=== PATIENT | male | born 1925 | race Caucasian/White ===

== ENCOUNTER 2016-07-10 08:03 | Emergency (ER) | payer OTHER ==
[~2016-07-10] VITALS: Ht 182.9 cm; Wt 85.4 kg
[~2016-07-10 08:03] MED LIST: ATEN-173 PO; BRIM0.2S OPB; BRIN1SUS OP; CMD/2 PO; CMD2 PO; DMD20 PO; FINA5TAB PO; FLM4 PO; LISI5TAB3 PO; MULT-190 PO; POTA-335 PO; TRAM37.52 PO; WARF2TAB PO
[2016-07-10 08:09] VITALS: TEMP 36.4; Ht 182.9 cm; Wt 85.4 kg
--- NOTE | 2016-07-10 08:49 | EMERGENCY ROOM VISIT NOTE ---
History Report prepared by [place]: Louisa Tillman Under the Supervision of: Dr. Gene Richardson D.O. First contact with patient: 08:12 Chief Complaint: FALL Stated Complaint: FALL W/ABRASIONS History of Present Illness The patient is an 89 year old male who presents to the Emergency Room with complaints of a fall that occurred around 0630 this morning. He is accompanied by his son, who is an EMT. The patient sustained a laceration to his left elbow and left knee. He denies hitting his head, losing consciousness of any other injuries. The patient is on daily Coumadin but states his INR has not been checked recently. His son reports his skin is "paper thin" and the last time he fell, he sustained a laceration to his torres, which ended up getting infected. The patient was then placed on antibiotics and developed C-Diff, which required a one night hospital stay and follow up with the local [facility]. The patient notes he cannot use certain adhesive bandages as they "pull my skin right off". His also reports the patient has experienced episodes of epistaxis recently. Source of History: patient, family (son) Onset: 0630 this morning Position: other (global) Timing: resolved Associated Symptoms: No LOC Review of Systems See HPI for pertinent positives & negatives. A total of 10 systems reviewed and were otherwise negative. Past Medical & Surgical Medical Problems: (1) Atrial fibrillation (2) Atrial flutter (3) Cellulitis of right leg (4) Cellulitis of right lower limb (5) Diabetes mellitus (6) Hyperlipidemia (7) Hyperplasia of prostate (8) Hypertension (9) Lyme disease (10) Reflux esophagitis (11) Wound infection Family History FH: stroke FHx: cancer Social History Smoking Status: Never Smoker Alcohol Use: none Drug Use: none Marital Status: Housing Status: lives alone Occupation Status: retired Current/Historical Medications Scheduled Atenolol (Tenormin), 25 MG PO DAILY Brimonidine Tartrate-Timolol M (Combigan), 1 DROP OPB BID Brinzolamide Oph (Azopt Oph), 1 DROP OP BID Finasteride (Proscar), 5 MG PO DAILY Lisinopril (Lisinopril), 5 MG PO DAILY Ocuvite Preservision (Ocuvite Preservision), 1 TAB PO BID Potassium Chloride (Potassium Chloride ER), 20 MEQ PO DAILY Tamsulosin HCl (Tamsulosin HCl), 0.4 MG PO DAILY Torsemide (Torsemide), 20 MG PO DAILY Warfarin Sodium (Coumadin), 2 MG PO UD Scheduled PRN Tramadol-Acetaminophen (Ultracet), 2 TAB PO TID PRN for Pain Allergies Coded Allergies: Clobetasol (Unverified Allergy, Severe, ITCHING, 07/10/16) Physical Exam Vital Signs Date Time Temp Pulse Resp B/P Pulse Ox O2 Delivery O2 Flow Rate FiO2 07/10/16 08:09 36.4 74 18 131/72 91 Room Air Physical Exam CONSTITUTIONAL/VITAL SIGNS: Reviewed / noted above. GENERAL: Non-toxic in appearance. INTEGUMENTARY: Warm, dry, and [place]. HEAD: Normocephalic. EYES: without scleral icterus or trauma. ENT/OROPHARYNX: clear and moist. LYMPHADENOPATHY/NECK: Is supple without lymphadenopathy or meningismus. RESPIRATORY: Lungs clear and equal. CARDIOVASCULAR: Regular rate and rhythm. GI/ABDOMEN: Soft and nontender. No organomegaly or pulsatile mass. No rebound or guarding. Normal bowel sounds. EXTREMITIES: Warm and well perfused. Several small skin tears to the left forearm, there is a large skin tear to the left lower extremity. BACK: No CVA tenderness. NEUROLOGICAL: Intact without focal deficits. PSYCHIATRIC: normal affect. MUSCULOSKELETAL: Normally developed with good muscle tone. Medical Decision & Procedures Laboratory Results Test 07/10/16 08:27 Bedside Prothrombin Time INR 2.5 (0.9-1.1) Laboratory results as stated above per my review. ED Course 0815: Previous medical records were reviewed. The patient was evaluated in room B10. A complete history and physical examination was performed. 0850: I reevaluated the patient. He is feeling much better. I discussed his results and discharge instructions and he and his son verbalized complete understanding and agreement. Medical Decision Differential includes close head injury, intracranial bleed, facial trauma, cervical spine trauma, chest and thoracic trauma, abdominal and intra-abdominal trauma, spine neurologic trauma, extremity trauma. This is a 89-year-old male who presents to the ED after a fall. The patient suffered some skin tears to his left upper extremity and left lower extremity. There are several small skin tears in the left upper extremity. One skin tear was approximated with Dermabond. The other skin tears either were missing skin or the skin was overlying on the wound. The largest skin tear was in the left lower extremity in the anterior tibial region. The avulsed skin was used as a biological dressing. All of the wounds were dressed. The patient does report a history of C. difficile in the past related antibiotics. He'll be discharged with wound care follow-up. Wounds wrapped by the nurses. The patient's INR today is 2.5. He is on Coumadin. He denies striking his head or any headaches. He is felt to be stable for discharge. Impression Primary Impression: Fall Additional Impression: Skin avulsion Scribe Attestation The scribe's documentation has been prepared under my direction and personally reviewed by me in its entirety. I confirm that the note above accurately reflects all work, treatment, procedures, and medical decision making performed by me. Departure Information Dispostion Home / Self-Care Referrals No Doctor, Assigned (PCP) Génesis Tierney,D.O. Patient Instructions My [facility] Additional Instructions Your INR today is 2.5. Follow-up with wound care clinic. Return for any concerns. Problem Qualifiers
[2016-07-10] MEDS ORDERED: DMD20 PO (08:53)
[2016-07-10] MEDS ORDERED: LSN5 PO (08:53)
[2016-07-10] MEDS ORDERED: POTA-65 PO (08:53)
[2016-07-10] MEDS ORDERED: FLM4 PO (08:53)
[2016-07-10 09:18] VITALS: BP 126/71; PULSE 59; O2SAT 95
[2016-10-14] MEDS ORDERED: CEPH500C2 PO (13:30)
== END 2016-07-10 09:19 | disposition home or self-care (01) ==
LOC: C.EDB 08:05
DX: S51.012A Laceration without foreign body of left elbow, initial encounter (principal); W19.XXXA Unspecified fall, initial encounter; I48.91 Unspecified atrial fibrillation; E11.9 Type 2 diabetes mellitus without complications; E78.5 Hyperlipidemia, unspecified; I10 Essential (primary) hypertension; Z79.01 Long term (current) use of anticoagulants

== ENCOUNTER → 2016-07-29 | Outpatient (CLI) | payer OTHER ==
[~2016-07-29] MED LIST changes: +CEPH500C2 PO; +CHOL4POW4 PO; -CMD/2 PO; -CMD2 PO; +DORZ1SOL6 OPB; +FLUO0.0566 TOP; +HYDR-4956 TOP; -LISI5TAB3 PO; +LSN5 PO; -POTA-335 PO; +POTA-65 PO; +TAMS0.4C38 PO; +WARF2TAB8 PO; +ZRX5 PO
[2016-07-29 17:36] LABS: BLOOD UREA NITROGEN 19 mg/dl (7-18); BUN/CREATININE RATIO 19.9 (10-20); CALCIUM 8.9 mg/dl (8.5-10.1); CARBON DIOXIDE 28 mmol/L (21-32); CHLORIDE 105 mmol/L (98-107); CREATININE 0.95 mg/dl (0.60-1.40); GLUCOSE 115 mg/dl (70-99); POTASSIUM 4.4 mmol/L (3.5-5.1); SODIUM 141 mmol/L (136-145)
== END | disposition home or self-care (01) ==
LOC: C.LABBC 15:55
PROVIDERS: ATTEND Internal Medicine
DX: I48.2 Chronic atrial fibrillation (principal)

== ENCOUNTER → 2016-10-25 | Outpatient (CLI) | payer OTHER ==
--- NOTE | 2016-10-25 14:07 | DIAGNOSTIC IMAGING REPORT ---
CHEST 2 VIEWS ROUTINE CLINICAL HISTORY: R06.02 Shortness of [id number] dyspnea COMPARISON STUDY: No previous studies for comparison. FINDINGS: Moderate cardiomegaly. Mild emphysematous change. Mild prominence of the central pulmonary vasculature. Diaphragms are smooth. IMPRESSION: Mild/moderate emphysematous change. Mild cardia megaly. Electronically signed by: Jesús Bar M.D. 10/25/2016 2:06 PM Dictated Date/Time: 10/25/2016 2:06 PM
[2016-10-25 17:15] LABS: BASO % 0.8 %; BASO ABS # 0.05 K/uL (0-0.2); COMPLETE YES; EOS % 3.1 %; HEMATOCRIT 38.8 % (42-52); IG% 0.2 %; LYMPH % 17.8 %; LYMPH ABS # 1.05 K/uL (1.2-3.4); MEAN CELL VOLUME 97.7 fL (80-100); MEAN CORPUSCULAR HEMOGLOBIN 31.2 pg (25-34); MONO % 12.4 %; NEUT % 65.7 %; PLATELET COUNT 212 K/uL (130-400); RED BLOOD COUNT 3.97 M/uL (4.7-6.1); WHITE BLOOD COUNT 5.89 K/uL (4.8-10.8)
[2016-10-25 17:54] LABS: ALB/GLOB RATIO 0.7 (0.9-2); ALKALINE PHOSPHATASE 147 U/L (45-117); ALT/SGPT 23 U/L (12-78); AST/SGOT 21 U/L (15-37); BLOOD UREA NITROGEN 18 mg/dl (7-18); BUN/CREATININE RATIO 17.8 (10-20); CALCIUM 8.6 mg/dl (8.5-10.1); CARBON DIOXIDE 28 mmol/L (21-32); CHLORIDE 107 mmol/L (98-107); GLUCOSE 132 mg/dl (70-99); POTASSIUM 4.3 mmol/L (3.5-5.1); SODIUM 140 mmol/L (136-145)
== END | disposition home or self-care (01) ==
LOC: C.RADBC 13:21
PROVIDERS: ATTEND Internal Medicine
DX: R06.02 Shortness of breath (principal)

== ENCOUNTER → 2016-10-27 | Outpatient (CLI) | payer OTHER ==
[2016-10-27 17:25] LABS: FERRITIN 99.3 ng/ml (8.0-388.0); THYROID STIMULATING HORMONE 1.13 uIu/ml (0.300-4.500)
--- NOTE | 2016-11-11 13:44 | CODING QUERY MEDICAL NECESSITY ---
SUPPORTING DIAGNOSIS NEEDED Dr. Moore, A supporting diagnosis is required for the test/procedure performed on this patient in order for us to be reimbursed by the patient's insurance. Please provide a supporting diagnosis for the following test/procedure listed below next to the test name along with your signature. *If there is no additional diagnosis for this patient that would support the following test/procedure please document that below next to the test/procedure. Test(s)/Procedure(s) that require a supporting diagnosis: * ([id number]) B12 VITAMIN LEVEL DIAGNOSIS: DATE OF SERVICE: 10/27/16 Provider Signature: Date: Thank you Alvaro Faust [facility] Information Management Once completed, please kindly fax back to [phone] For questions please call [phone]
== END | disposition home or self-care (01) ==
LOC: C.LABBC 12:38
PROVIDERS: ATTEND Internal Medicine
DX: R60.0 Localized edema (principal); D64.9 Anemia, unspecified; H54.8 Legal blindness, as defined in USA

== ENCOUNTER 2017-01-06 16:46 | Inpatient (IN) | payer OTHER ==
[~2017-01-06] VITALS: Ht 180.3 cm; Wt 78.7 kg
[~2017-01-06 16:46] MED LIST changes: -CHOL4POW4 PO; -DORZ1SOL6 OPB; -FLUO0.0566 TOP; -HYDR-4956 TOP; -TAMS0.4C38 PO; -WARF2TAB8 PO; -ZRX5 PO
--- NOTE | 2017-01-06 17:46 | DIAGNOSTIC IMAGING REPORT ---
CHEST ONE VIEW PORTABLE CLINICAL HISTORY: Shortness of breath. Possible failure COMPARISON STUDY: 10/25/2016 FINDINGS: The chest has an emphysematous configuration. The heart remains enlarged. There is no focal pulmonary consolidation. There is minor basilar atelectasis/scarring.[ There are no significant pleural effusions. IMPRESSION: Cardiomegaly. Emphysema. No evidence of focal pulmonary consolidation. No evidence of overt failure Electronically signed by: Valerio Ochoa M.D. 01/06/2017 5:45 PM Dictated Date/Time: 01/06/2017 5:44 PM
[2017-01-06] MEDS ORDERED: FUROSEMIDE 40 MG/4 ML VIAL IV STA (17:49)
[2017-01-06] MEDS ORDERED: DORZ1SOL6 OPB (18:06)
[2017-01-06] MEDS ORDERED: HYDR-4956 TOP (18:06)
[2017-01-06] MEDS ORDERED: WARF2TAB8 PO (18:06)
[2017-01-06] MEDS ORDERED: FLUO0.0566 TOP (18:06)
[2017-01-06] MEDS ORDERED: ZRX5 PO (18:06)
[2017-01-06 18:07] LABS: BASO % 0.4 %; BASO ABS # 0.02 K/uL (0-0.2); COMPLETE YES; EOS % 3.2 %; HEMATOCRIT 40.5 % (42-52); IG% 0.2 %; LYMPH % 21.3 %; LYMPH ABS # 1.05 K/uL (1.2-3.4); MEAN CELL VOLUME 91.2 fL (80-100); MEAN CORPUSCULAR HEMOGLOBIN 31.8 pg (25-34); MEAN CORPUSCULAR HGB CONC 34.8 g/dl (32-36); MEAN PLATELET VOLUME 8.4 fL (7.4-10.4); MONO % 14.4 %; NEUT % 60.5 %; PLATELET COUNT 201 K/uL (130-400); RED BLOOD COUNT 4.44 M/uL (4.7-6.1); WHITE BLOOD COUNT 4.93 K/uL (4.8-10.8)
[2017-01-06 18:10] LABS: POINT OF CARE PRO-BNP 1276 pg/ml (0-1800); POINT OF CARE TROPONIN I < 0.030 ng/ml (0-0.045)
[2017-01-06 18:27] LABS: INR 1.5 (0.9-1.1); PARTIAL THROMBOPLASTIN RATIO 1.4; PROTHROMBIN TIME (PATIENT) 16.6 SECONDS (9.0-12.0)
[2017-01-06 18:32] LABS: CALCIUM 9.2 mg/dl (8.5-10.1); POTASSIUM 3.1 mmol/L (3.5-5.1)
[2017-01-06] MEDS ORDERED: POTASSIUM CHLORIDE 10 MEQ / 100ML WTR IV STA (18:33)
[2017-01-06] MEDS ORDERED: POTASSIUM CHLORIDE 10 MEQ TABCR PO STA ×2 (18:33→21:11)
[2017-01-06 18:34] LABS: BUN/CREATININE RATIO 20.2 (10-20); CREATININE 1.1 mg/dl (0.60-1.40)
[2017-01-06 18:37] LABS: MAGNESIUM 2.2 mg/dl (1.8-2.4)
--- NOTE | 2017-01-06 18:56 | History and Physical ---
History & Physical Date & Time of Service: Jan 06, 2017 at 18:54 Chief Complaint: CHF Primary Care Physician: Ramin Moore M.D. 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 The patient is present here with his [id number] and son who support his history. This morning home health nursing presented to his home for regularly scheduled checkup. While there the nurse noted that he was bradycardic in the low 50s, where he normally has a heart rate in 70s. When he expressed lightheadedness she encouraged him to go to the ER. He has also taken metolazone 5 mg on 01/04 and 01/05 for a ~5lb weight gain. His dry weight is 180-185 lbs, and reports weighing 182 lbs at home today. Of note the patient was seen by Dr. Moore recently and torsemide was increased from 20 mg daily to 40 mg daily. Pt denies feeling dizzy, headache, chest pain, palpitations or flutter. He denies acutely feeling short of breath, and does not wear oxygen at baseline. He denies falls, but does frequently bump into things and his skin tears easily, he uses a crutch due to chronic right hip pain and s/p 3 R hip arthroplasties. The patient lives at home alone, but has home health nursing coming in twice weekly. Here in the ER the patient was administered Lasix 20 mg IV daily for elevated BNP= 1276, K was decrease to 3.1, A CXR was obtained and showed no acute signs of overt failure. EKG was reviewed and show atrial fibrillation with bradycardia HR equal to 56 bpm, also with T-wave inversions in V2-V3, AVF, AV3. Past Medical/Surgical History Medical Problems: (1) Atrial fibrillation Status: Chronic (2) Atrial flutter Status: Chronic (3) Cellulitis of right leg Status: Chronic (4) Cellulitis of right lower limb Status: Chronic (5) Diabetes mellitus Status: Chronic (6) Hyperlipidemia Status: Chronic (7) Hyperplasia of prostate Status: Chronic (8) Hypertension Status: Chronic (9) Lyme disease Status: Resolved (10) Reflux esophagitis Status: Chronic (11) Wound infection Status: Chronic Surgical HX: R hip arthoplasty x 3 Cataract surgery on both eyes Family History FH: stroke FHx: cancer Social History Smoking Status: Former Smoker Alcohol Use: none Drug Use: none Marital Status: Housing status: lives alone Occupational Status: retired Immunizations History of Influenza Vaccine: N/A History of Tetanus Vaccine?: No History of Pneumococcal: Yes History of Hepatitis B Vaccine: No Multi-Drug Resistant Organisms History of MDRO: No Allergies Coded Allergies: Clobetasol (Unverified Allergy, Severe, ITCHING, 01/06/17) Home Medications Scheduled Atenolol (Tenormin), 25 MG PO DAILY Brimonidine Tartrate-Timolol M (Combigan), 1 DROP OPB BID Cholestyramine (Cholestyramine), 4 MG PO BID Dorzolamide Hcl-Timolol Maleat (Cosopt Oph), 1 DROPS OPB BID Finasteride (Proscar), 5 MG PO DAILY Metolazone (Metolazone), 1 TAB PO UD Ocuvite Preservision (Ocuvite Preservision), 1 TAB PO BID Potassium Chloride (Potassium Chloride ER), 0.5 TAB PO QAM Tamsulosin HCl (Tamsulosin HCl), 0.4 MG PO DAILY Torsemide (Torsemide), 2 TAB PO QAM Warfarin Sod (Jantoven), 2 TAB PO DAILY Scheduled PRN Tramadol-Acetaminophen (Ultracet), 2 TAB PO TID PRN for Pain Review of Systems Constitutional: No fever, sweats or chills, + lightheadedness x1 day Eyes: No diplopia, no worsening or blurred vision, + R eye blindness due to childhood injury ENT: normal hearing, no trouble swallowing Respiratory: No cough, sputum, + slight dyspnea on exertion, no dyspnea at rest Cardiovascular: No chest pain, tightness or palpitations Abdomen: No pain, nausea, vomiting, diarrhea or constipation Musculoskeletal: No joint pain, calf pain, swelling Neurologic: No weakness, numbness/tingling, or balance problems Psychiatric: No anxiety or depression Skin: Chronically red skin and wounds secondary to fluid blisters on bilateral lower extremities. Physical Exam Vital Signs Date Time Temp Pulse Resp B/P (MAP) Pulse Ox O2 Delivery O2 Flow Rate FiO2 01/06/17 18:43 97 Room Air 01/06/17 18:41 44 20 141/63 96 Room Air 01/06/17 18:33 46 01/06/17 18:04 96 Room Air 01/06/17 16:55 36.3 64 20 125/69 94 Room Air General: awake, alert, no apparent distress Head: Normocephalic, atraumatic ENT: PERRL, EOMI, no pharyngeal exudate, mucous membranes moist, + wearing darkened glasses over the right eye Chest: Clear to auscultation with slightly diminished breath sounds at bases, on room air, no adventitious breath sounds Cardiac: Irregularly irregular, bradycardic, + systolic murmur grade I/, no JVD, normal peripheral pulses, good capillary refill Abdominal: NABS x 4 quadrants, + distended, +dull on percussion, nontender to palpation, no rebound, guarding or tenderness Extremities: Normal inspection, no peripheral edema or erythema, calfs nontender to palpation Psych: Normal mood and affect Neuro: AAO x 3, strength intact bilaterally and related 5/5, no motor deficits, speech is clear, no peripheral sensory deficits Diagnostics Laboratory Results Results Past 24 Hours Test 01/06/17 17:48 01/06/17 17:51 Range/Units White Blood Count 4.93 4.8-10.8 K/uL Red Blood Count 4.44 4.7-6.1 M/uL Hemoglobin 14.1 14.0-18.0 g/dL Hematocrit 40.5 42-52 % Mean Corpuscular Volume 91.2 80-100 fL Mean Corpuscular Hemoglobin 31.8 25-34 pg Mean Corpuscular Hemoglobin Concent 34.8 32-36 g/dl Platelet Count 201 130-400 K/uL Mean Platelet Volume 8.4 7.4-10.4 fL Neutrophils (%) (Auto) 60.5 % Lymphocytes (%) (Auto) 21.3 % Monocytes (%) (Auto) 14.4 % Eosinophils (%) (Auto) 3.2 % Basophils (%) (Auto) 0.4 % Neutrophils # (Auto) 2.98 1.4-6.5 K/uL Lymphocytes # (Auto) 1.05 1.2-3.4 K/uL Monocytes # (Auto) 0.71 0.11-0.59 K/uL Eosinophils # (Auto) 0.16 0-0.5 K/uL Basophils # (Auto) 0.02 0-0.2 K/uL RDW Standard Deviation 49.9 36.4-46.3 fL RDW Coefficient of Variation 14.8 11.5-14.5 % Immature Granulocyte % (Auto) 0.2 % Immature Granulocyte # (Auto) 0.01 0.00-0.02 K/uL Prothrombin Time 16.6 9.0-12.0 SECONDS Prothromb Time International Ratio 1.5 0.9-1.1 Activated Partial Thromboplast Time 37.6 21.0-31.0 SECONDS Partial Thromboplastin Ratio 1.4 Sodium Level 137 136-145 mmol/L Potassium Level 3.1 3.5-5.1 mmol/L Chloride Level 98 98-107 mmol/L Carbon Dioxide Level 33 21-32 mmol/L Anion Gap 6.0 3-11 mmol/L Blood Urea Nitrogen 22 7-18 mg/dl Creatinine 1.10 0.60-1.40 mg/dl Est Creatinine Clear Calc Drug Dose 48.5 ml/min Estimated GFR () 68.6 Estimated GFR (Non- 59.2 BUN/Creatinine Ratio 20.2 10-20 Random Glucose 154 70-99 mg/dl Calcium Level 9.2 8.5-10.1 mg/dl Magnesium Level 2.2 1.8-2.4 mg/dl Total Bilirubin 0.5 0.2-1 mg/dl Direct Bilirubin 0.2 0-0.2 mg/dl Aspartate Amino Transf (AST/SGOT) 18 15-37 U/L Alanine Aminotransferase (ALT/SGPT) 22 12-78 U/L Alkaline Phosphatase 103 45-117 U/L Total Protein 8.3 6.4-8.2 gm/dl Albumin 3.4 3.4-5.0 gm/dl Lipase 178 73-393 U/L Bedside Troponin I < 0.030 0-0.045 ng/ml SJ-For-O-Type Natriuretic Peptide 1276 0-1800 pg/ml Diagnostic Radiology CHEST ONE VIEW PORTABLE CLINICAL HISTORY: Shortness of breath. Possible failure COMPARISON STUDY: 10/25/2016 FINDINGS: The chest has an emphysematous configuration. The heart remains enlarged. There is no focal pulmonary consolidation. There is minor basilar atelectasis/scarring.[ There are no significant pleural effusions. IMPRESSION: Cardiomegaly. Emphysema. No evidence of focal pulmonary consolidation. No evidence of overt failure Electronically signed by: Valerio Ochoa M.D. 01/06/2017 5:45 PM Dictated Date/Time: 01/06/2017 5:44 PM The status of this report is Signed. EKG Vent. rate [address] interval * ms QRS duration 100 ms QT/QTc 478/461 ms P-R-T axes * -63 -51 Atrial fibrillation with slow ventricular response with premature ventricular or aberrantly conducted complexes Left axis deviation Incomplete right bundle branch block Septal infarct (cited on or before 06-JAN-2017) Inferior infarct , age undetermined ST & T wave abnormality, consider anterior ischemia Abnormal ECG When compared with ECG of 22-DEC-2009 11:07, Serial changes of Septal infarct Present Impression Assessment and Plan This is a 89 with PMHx of chronic systolic and at bedtime with an EF equals 45- 50%, pulmonary hypertension, chronic atrial fibrillation on anticoagulation, atrial flutter, hyperlipidemia, hypertension, anemia, Lyme's disease, GERD, osteoarthritis, macular degeneration, 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 Bradycardia Lightheadedness - Admit to telemetry - Holding atenolol for bradycardia with heart rate in the 50s. Pt had been taking torsemide 40 mg QAM which was recently increased per cardiology. He has also taken metolazone 5 mg on 01/04 and 01/05 for a ~5 lb weight gain. His dry weight is 180-185 lbs and today is at 182lbs. - It may be metalozone causing acute bradycardia since he has not needed to take this in the past on more than one other occasion. - Consult cardiology, follows with Dr. Rouse as an outpatient - We'll trend troponins, first set was negative - PT and OT evaluations - Received Lasix 20 mg IV in the ER Hypokalemia - potassium was placed via IV and PO in the ED for K+= 3.1 - Will give an additional 40 meq now as he got Lasix as above - Will continue K+ replacement 20 meq daily Chronic systolic CHF Pulmonary hypertension HTN - Echocardiogram from October 2016 showing LVEF = 40-45%, right ventricular moderate to severely dilated. Right Atrium severely dilated, mild to moderate mitral regurg, mild to moderate tricuspid regurg, severe pulmonary hypertension - Holding atenolol for bradycardia - Will hold torsemide 40 mg every morning - EKG reviewed as above, repeat morning EKG tomorrow and prn chest pain. Hx of atrial flutter and fibrillation - Continue coumadin, INR =1.5, will order 3 mg tonight since subtherapeutic and will order 2 mg for next 2 days. - Pt normally takes 2 mg x 2 days then 1 mg x 1 day and repeats [address] Moore follows INR. GERD - Pt reports chronic belching but is not on an antiacid - will order tums prn Osteoarthritis - Uses a crutch to assist with ambulation, lives at home alone, PT/OT evals BPH - Continue Flomax 0.4mg daily and finasteride 5 mg daily Anemia - Hgb is stable at 14.1 DVT ppx: Teds, scds, coumadin CODE STATUS: DNR Disposition: From home, lives alone, has home health services in home twice weekly, CM to assist with DC planning. Resuscitation Status DO NOT RESUSCITATE VTE Prophylaxis Given or contraindicated: Warfarin (Coumadin), T.E.D. Stockings, SCD's Social Service Consult >80 yr.& Lives Alone Reviewed: Pt Seen/Exam by Me History Physician Computer Operations Specialist Supervision Note: I interviewed and examined the patient. Discussed with ROSETTA Eldridge and agree with findings and plan as documented in the note. Any exceptions or clarifications are listed here: Patient is an 89-year-old male with a history of chronic biventricular systolic and diastolic CHF, paroxysmal atrial fibrillation and flutter, hypertension, who presents with lightheadedness and bradycardia after being seen by a visiting nurse today. He reports taking metolazone daily for the last 2 days as he had had weight gain. His torsemide was increased from 20 mg daily to 40 mg daily about one month ago as well. His heart rate apparently dropped briefly into the 30s while he was in the ER, and was in the 40s and 50s when I saw him. He had significant hypokalemia which is most likely related to the diuretic use. Patient also reports he has had a tender lump in his left breast for the last 1- 2 weeks but it has become more painful in the last 2 days. Vitals reviewed No acute distress, alert awake oriented 3 and sitting on the side of the bed Irregularly irregular, bradycardic, 2/6 systolic murmur heard at the left lower sternal border Lungs clear to auscultation bilaterally, no wheezes crackles or rhonchi Left breast with 1.5 cm palpable tender cystic mass in the subareolar region, no nipple discharge Abdomen positive bowel sounds soft nontender nondistended Extremities chronic venous stasis changes and erythema but is chronic, right anterior tibia with small shallow ulceration 1 cm, 1+ pitting edema and trophic changes of the legs bilaterally with thickened yellow toenails, 1+ dorsalis pedis pulses bilaterally 89-year-old male here with lightheadedness and bradycardia along with hypokalemia. I feel that his lightheadedness is probably more likely do to the recent metolazone use, but could also be due to bradycardia. -Hold metolazone -Hold atenolol -Observe on telemetry -Replace potassium -Okay to continue torsemide but will only give 20 mg in the morning for now -Appreciate cardiology consult -Breast ultrasound for left breast mass but seems to be a cyst on exam Documented By: Emily Escobedo
[2017-01-06] MEDS ORDERED: TAMS0.4C38 PO (19:43)
[2017-01-06] MEDS ORDERED: ACETAMINOPHEN 325 MG TAB PO PRN (19:45)
[2017-01-06] MEDS ORDERED: ONDANSETRON INJ 2 MG/ML 2 ML VIAL IV PRN (19:45)
[2017-01-06] MEDS ORDERED: POLYETHYLENE (MIRALAX) 17 GM PACK PO PRN (19:45)
[2017-01-06] MEDS ORDERED: CHOL4POW4 PO (19:45)
[2017-01-06 20:00] LABS: URINE APPEARANCE CLEAR (CLEAR); URINE BILIRUBIN NEG (NEG); URINE COLOR YELLOW; URINE NITRITE NEG (NEG); URINE SPECIFIC GRAVITY 1.008 (1.000-1.030); UROBILINOGEN NEG (NEG)
[2017-01-06 20:04] LABS: MANUAL MICROSCOPIC REQUIRED? NO; REVIEW REQ? NO
[2017-01-06 21:15] VITALS: BP 127/79; PULSE 58; TEMP 36.5; O2SAT 92
[2017-01-06] MEDS ORDERED: WARFARIN SOD 3 MG TAB PO ONE (21:30)
[2017-01-06] MEDS: CHOLESTYRAMINE LIGHT 4 GM PKT PO SCH (22:00)
[2017-01-06] MEDS: DORZOLAMIDE/TIMOLOL 22.3/6.8MG/ML 10 ML BTL OPB SCH (22:05)
[2017-01-06] MEDS: CEROVITE ADV FORMULA TAB PO SCH (22:05)
[2017-01-06 23:14] VITALS: BP 107/54; PULSE 61; TEMP 36.4; O2SAT 95
[2017-01-06 23:33] VITALS: BP 127/79; PULSE 58; TEMP 36.5; O2SAT 92; Ht 180.3 cm; Wt 78.7 kg
--- NOTE | 2017-01-06 23:36 | EMERGENCY ROOM VISIT NOTE ---
History Report prepared by Lavell: Patti Good Under the Supervision of: Dr. Jeffrey Richards M.D. First contact with patient: 17:11 Chief Complaint: CARDIAC ASSESSMENT Stated Complaint: CHF History of Present Illness The patient is a 89 year old male who presents to the Emergency Room with complaints of intermittent shortness of breath beginning today. The patient's daughter states that the patient has had worsening intermittent shortness of breath over the last few weeks. She reports that in the last week the patient has been having shortness of breath more frequently and today he began to feel lightheadedness as well. The daughter notes that the patient has a history of congestive heart failure and has right sided heart failure. She reports that he is on Coumadin for atrial fibrillation. She states that he is on diuretics and they weigh him every day. The patient notes that he has had increased weight loss and continuous belching that is not new. His physician felt that the CHF made a been responsible for his continuous belching. Shortness of breath is not unusual for him but today he was somewhat lightheaded. He does admit to not eating or drinking very much today as he has no appetite. He notes that his heart rate was found to be low by his home health nurse in the 50s today. He denies any chest pain and fever. The patient reports that he is also concerned about a mass that he found underneath his left nipple 2 days ago. He states that he follows with Dr. Moore for his CHF and atrial fibrillation and he has not told him about the mass. Source of History: patient, family Onset: today Position: other (respiratory) Quality: other (SOB) Timing: intermittent Associated Symptoms: No fevers, No chest pain Note: Pt complains of a slow heart rate, lightheadedness, dizziness, weight loss, decreased appetite, and continuous belching. Review of Systems See HPI for pertinent positives & negatives. A total of 10 systems reviewed and were otherwise negative. Past Medical & Surgical Medical Problems: (1) Atrial fibrillation (2) Atrial flutter (3) Bradycardia (4) Cellulitis of right leg (5) Cellulitis of right lower limb (6) Diabetes mellitus (7) Hyperlipidemia (8) Hyperplasia of prostate (9) Hypertension (10) Lyme disease (11) Reflux esophagitis (12) Wound infection Family History FH: stroke FHx: cancer Social History Smoking Status: Former Smoker Alcohol Use: none Drug Use: none Marital Status: Housing Status: lives alone Occupation Status: retired Current/Historical Medications Scheduled Atenolol (Tenormin), 25 MG PO DAILY Brimonidine Tartrate-Timolol M (Combigan), 1 DROP OPB BID Cholestyramine (Cholestyramine), 4 MG PO BID Dorzolamide Hcl-Timolol Maleat (Cosopt Oph), 1 DROPS OPB BID Finasteride (Proscar), 5 MG PO DAILY Metolazone (Metolazone), 1 TAB PO UD Ocuvite Preservision (Ocuvite Preservision), 1 TAB PO BID Potassium Chloride (Potassium Chloride ER), 0.5 TAB PO QAM Tamsulosin HCl (Tamsulosin HCl), 0.4 MG PO DAILY Torsemide (Torsemide), 2 TAB PO QAM Warfarin Sod (Jantoven), 2 TAB PO DAILY Scheduled PRN Tramadol-Acetaminophen (Ultracet), 2 TAB PO TID PRN for Pain Allergies Coded Allergies: Clobetasol (Unverified Allergy, Severe, ITCHING, 01/06/17) Physical Exam Vital Signs Date Time Temp Pulse Resp B/P (MAP) Pulse Ox O2 Delivery O2 Flow Rate FiO2 01/06/17 19:49 55 20 122/78 98 Room Air 01/06/17 18:43 97 Room Air 01/06/17 18:41 44 20 141/63 96 Room Air 01/06/17 18:33 46 01/06/17 18:04 96 Room Air 01/06/17 16:55 36.3 64 20 125/69 94 Room Air Physical Exam Constitutional: Vital signs reviewed. Eyes: Right eye post-traumatic changes, left pupil round and reactive. ENT: Pharynx is clear without erythema or exudate. Mucous membranes are moist. Neck supple without meningeal signs. Respiratory: Clear to auscultation bilaterally. Breath sounds are equal bilaterally. Cardiovascular: Regular rate and rhythm. No rubs or gallops. GI: Soft, nondistended and nontender. Bowel sounds are present. Musculoskeletal: Venous stasis discoloration to lower extremities with mild edema. Integumentary: No cyanosis. Small lump under left nipple without erythema or signs of infection. Neurological: The patient is awake and alert. No focal deficits. Psychiatric: Normal affect. Medical Decision & Procedures ER Provider Diagnostic Interpretation: X-ray results as stated below per interpretation by me and the radiologist: CHEST ONE VIEW PORTABLE FINDINGS: The chest has an emphysematous configuration. The heart remains enlarged. There is no focal pulmonary consolidation. There is minor basilar atelectasis/scarring. There are no significant pleural effusions. IMPRESSION: Cardiomegaly. Emphysema. No evidence of focal pulmonary consolidation. No evidence of overt failure Electronically signed by: Valerio Ochoa M.D. 01/06/2017 5:45 PM Dictated Date/Time: 01/06/2017 5:44 PM Laboratory Results 01/06/17 17:48 Red Blood Count 4.44, Mean Corpuscular Volume 91.2, Mean Corpuscular Hemoglobin 31.8, Mean Corpuscular Hemoglobin Concent 34.8, Mean Platelet Volume 8.4, Neutrophils (%) (Auto) 60.5, Lymphocytes (%) (Auto) 21.3, Monocytes (%) (Auto) 14.4, Eosinophils (%) (Auto) 3.2, Basophils (%) (Auto) 0.4, Neutrophils # (Auto ) 2.98, Lymphocytes # (Auto) 1.05, Monocytes # (Auto) 0.71, Eosinophils # (Auto ) 0.16, Basophils # (Auto) 0.02 01/06/17 17:48 Test 01/06/17 17:48 01/06/17 17:51 01/06/17 19:45 White Blood Count 4.93 K/uL (4.8-10.8) Red Blood Count 4.44 M/uL (4.7-6.1) Hemoglobin 14.1 g/dL (14.0-18.0) Hematocrit 40.5 % (42-52) Mean Corpuscular Volume 91.2 fL (80-100) Mean Corpuscular Hemoglobin 31.8 pg (25-34) Mean Corpuscular Hemoglobin Concent 34.8 g/dl (32-36) Platelet Count 201 K/uL (130-400) Mean Platelet Volume 8.4 fL (7.4-10.4) Neutrophils (%) (Auto) 60.5 % Lymphocytes (%) (Auto) 21.3 % Monocytes (%) (Auto) 14.4 % Eosinophils (%) (Auto) 3.2 % Basophils (%) (Auto) 0.4 % Neutrophils # (Auto) 2.98 K/uL (1.4-6.5) Lymphocytes # (Auto) 1.05 K/uL (1.2-3.4) Monocytes # (Auto) 0.71 K/uL (0.11-0.59) Eosinophils # (Auto) 0.16 K/uL (0-0.5) Basophils # (Auto) 0.02 K/uL (0-0.2) RDW Standard Deviation 49.9 fL (36.4-46.3) RDW Coefficient of Variation 14.8 % (11.5-14.5) Immature Granulocyte % (Auto) 0.2 % Immature Granulocyte # (Auto) 0.01 K/uL (0.00-0.02) Prothrombin Time 16.6 SECONDS (9.0-12.0) Prothromb Time International Ratio 1.5 (0.9-1.1) Activated Partial Thromboplast Time 37.6 SECONDS (21.0-31.0) Partial Thromboplastin Ratio 1.4 Anion Gap 6.0 mmol/L (3-11) Est Creatinine Clear Calc Drug Dose 48.5 ml/min Estimated GFR () 68.6 Estimated GFR (Non- 59.2 BUN/Creatinine Ratio 20.2 (10-20) Calcium Level 9.2 mg/dl (8.5-10.1) Magnesium Level 2.2 mg/dl (1.8-2.4) Total Bilirubin 0.5 mg/dl (0.2-1) Direct Bilirubin 0.2 mg/dl (0-0.2) Aspartate Amino Transf (AST/SGOT) 18 U/L (15-37) Alanine Aminotransferase (ALT/SGPT) 22 U/L (12-78) Alkaline Phosphatase 103 U/L (45-117) Total Protein 8.3 gm/dl (6.4-8.2) Albumin 3.4 gm/dl (3.4-5.0) Lipase 178 U/L (73-393) Bedside Troponin I < 0.030 ng/ml (0-0.045) TN-Lvt-N-Type Natriuretic Peptide 1276 pg/ml (0-1800) Urine Color YELLOW Urine Appearance CLEAR (CLEAR) Urine pH 7.0 (4.5-7.5) Urine Specific Walters 1.008 (1.000-1.030) Urine Protein NEG (NEG) Urine Glucose (UA) NEG (NEG) Urine Ketones NEG (NEG) Urine Occult Blood NEG (NEG) Urine Nitrite NEG (NEG) Urine Bilirubin NEG (NEG) Urine Urobilinogen NEG (NEG) Urine Leukocyte Esterase NEG (NEG) Laboratory results as reviewed by me. Medications Administered Medications (Trade) Dose Ordered Sig/Celeste Route Start Time Stop Time Status Last Admin Dose Admin Furosemide (Lasix Inj) 20 mg NOW STAT IV 01/06/17 17:49 01/06/17 17:50 DC 01/06/17 19:21 20 MG Potassium Chloride (Kcl 10 Meq / Wtr) 10 meq NOW STAT IV 01/06/17 18:33 01/06/17 18:34 DC 01/06/17 19:21 10 MEQ Potassium Chloride (Klor-Con M10) 40 meq NOW STAT PO 01/06/17 18:33 01/06/17 18:34 DC 01/06/17 18:33 40 MEQ ECG Indication: SOB/dyspnea Rate (beats per minute): 56 Rhythm: atrial fibrillation Findings: RBBB (incomplete), other (no ST elevation) Comparison ECG Date: 12/22/09 Change: no significant change ED Course 171: The patient was evaluated in room A4. A complete history and physical exam was performed. 174: Lasix Inj 20mg IV. 1817: I reassessed the patient. His heart rate is going down into the 40s and 50s. I discussed his test results with him. 1833: Potassium Chloride 40meq PO, Potassium Chloride 10meq IV. 1845: I spoke with Dr. Escobedo of [facility] [place]. We discussed the patient and his results. The patient will be further evaluated by Dr. Escobedo. 1853: I reevaluated and updated the patient and his family. He will be further evaluated and managed by Dr. Escobedo of [facility] [place]. Medical Decision This is an 89-year-old male who presents with lightheadedness and shortness of breath. Differential diagnosis includes acute exacerbation of CHF, pleural effusion, pulmonary edema, pneumonia, metabolic derangement, anemia. I did perform a limited focused review of portions of the patient's old chart on the electronic medical record. The patient is followed by the wound clinic for venostasis ulcerations to the lower extremities. I did evaluate the patient as noted above. The patient is presenting with lightheadedness and some increased shortness of breath. His daughter is concerned that he has an exacerbation of his CHF. IV access was established. The patient was given Lasix 20 mg IV. The patient was placed on a continuous clinical research monitor. The patient has episodic bradycardia. His heart rate will go into the 30s although he will remain normotensive. I did order and personally review the patient's 12-lead EKG and chest x-ray as described above. I did order and review the patient's blood work as noted in the electronic medical record. He is hypokalemic. I did treat him with IV potassium and oral potassium. I did discuss the test results with the patient and the family. I did recommend hospitalization for further workup of his bradycardia. I did discuss the case with the hospitalist and case specialist. He was advised follow with his doctor regarding the breast mass. Medication Reconcilliation Current Medication List: was personally reviewed by me Blood Pressure Screening Patient's blood pressure: Normal blood pressure Blood pressure disposition: Did not require urgent referral Consults Time Called: 1841 Consulting Physician: Dr. Escobedo - [facility] [place] Returned Call: [address] Escobedo of [facility] [place]. We discussed the patient and his results. The patient will be further evaluated by Dr. Escobedo. Impression Primary Impression: Bradycardia Additional Impressions: CHF (congestive heart failure) Breast mass in male Hypokalemia Subtherapeutic international normalized ratio (INR) Atrial fibrillation Scribe Attestation The scribe's documentation has been prepared under my direct and personally reviewed by me in its entirety. I confirm that the note above accurately reflects all work, treatment, procedures, and medical decision making performed by me. Departure Information Dispostion Being Evaluated By Hospitalist Referrals No Doctor, Assigned (PCP) Patient Instructions My [facility] Problem Qualifiers Additional Impressions: CHF (congestive heart failure) Congestive heart failure type: unspecified congestive heart failure type Congestive heart failure chronicity: unspecified congestive heart failure chronicity Qualified Codes: I50.9 - Heart failure, unspecified Atrial fibrillation Atrial fibrillation type: chronic Qualified Codes: I48.2 - Chronic atrial fibrillation
[2017-01-07] VITALS (7 sets, daily range): BP systolic 108–129; BP diastolic 61–76; PULSE 61–79; TEMP 36.4–37; O2SAT 90–98
[2017-01-07 05:49] LABS: BASO % 0.8 %; BASO ABS # 0.04 K/uL (0-0.2); COMPLETE YES; EOS % 3.9 %; HEMATOCRIT 41.2 % (42-52); LYMPH ABS # 1.32 K/uL (1.2-3.4); MEAN CELL VOLUME 90.5 fL (80-100); MEAN CORPUSCULAR HEMOGLOBIN 30.8 pg (25-34); MEAN PLATELET VOLUME 8.4 fL (7.4-10.4); MONO % 19.7 %; NEUT % 48.6 %; PLATELET COUNT 209 K/uL (130-400); RED BLOOD COUNT 4.55 M/uL (4.7-6.1); WHITE BLOOD COUNT 4.88 K/uL (4.8-10.8)
[2017-01-07 06:15] LABS: BUN/CREATININE RATIO 21.6 (10-20); CALCIUM 9.5 mg/dl (8.5-10.1); CREATININE 0.98 mg/dl (0.60-1.40); POTASSIUM 3.4 mmol/L (3.5-5.1)
[2017-01-07 06:28] LABS: INR 1.5 (0.9-1.1); PROTHROMBIN TIME (PATIENT) 16.1 SECONDS (9.0-12.0)
[2017-01-07] MEDS: COMBIGAN~ORDER AWAITING ACTION SCH ×4 (08:00→23:57)
[2017-01-07] MEDS ORDERED: PNEUMOCOCCAL ADMINISTRATION CHARGE ONE (08:00)
[2017-01-07] MEDS ORDERED: PNEUMOCOCCAL POLYSACCHARIDES 25 MCG/0.5 ML VIAL/SYR IM. ONE (08:00)
[2017-01-07] MEDS ORDERED: WARFARIN SOD 2 MG TAB PO SCH ×2 (09:00→16:00)
[2017-01-07] MEDS: DORZOLAMIDE/TIMOLOL 22.3/6.8MG/ML 10 ML BTL OPB SCH ×2 (09:53→21:10)
[2017-01-07] MEDS: CHOLESTYRAMINE LIGHT 4 GM PKT PO SCH (10:00)
[2017-01-07] MEDS: TORSEMIDE 20 MG TAB PO SCH (10:01)
[2017-01-07] MEDS: POTASSIUM CHLORIDE 20 MEQ TABCR PO SCH (10:01)
[2017-01-07] MEDS: CEROVITE ADV FORMULA TAB PO SCH ×2 (10:02→21:11)
[2017-01-07] MEDS: TAMSULOSIN HCL 0.4 MG CAP PO SCH (10:02)
[2017-01-07] MEDS: FINASTERIDE 5 MG TAB PO SCH (10:02)
--- NOTE | 2017-01-07 11:13 | CARDIOLOGY CONSULTATION ---
DATE OF CONSULTATION: 01/07/2017 PERTINENT HISTORY: Mr. Mojica is an 89-year-old white male admitted yesterday because of bradycardia and possible dehydration. The patient was in his usual state of health until January 04 when the patient noticed 5 pounds of weight gain. Typically, the patient weighs 181-182 pounds. His weight increased to 187 pounds and he administered a dose of metolazone on both January 04 and January 05. Following the dosing of additional diuretics, the patient noted an orthostatic dizziness. He was assessed by a home nurse on the day of presentation, who noted his heart rate to be in the 50s. Typically, by her report, his heart rate is in the 70s. He was therefore sent to the emergency room for further care. The patient has a longstanding history of cardiac disease. He has a Persantine stress test performed in May 1998, which noted anteroapical ischemia. No cardiac catheterization was performed. The patient also carries a history of combined congestive heart failure with an ejection fraction of 45%-50% on an echocardiogram performed on November 04 of this year. He also has significant pulmonary hypertension, possibly from obstructive sleep apnea. The right heart was significantly dilated with moderate right ventricular systolic dysfunction. There is evidence of severe pulmonary hypertension with mild to moderate tricuspid regurgitation and a calculated pulmonary artery systolic pressure of greater than 60 mmHg. In terms of the patient's bradycardia, his atenolol was placed on hold. There has been some improvement in his heart rate. Currently, the patient is resting comfortably at the bedside without complaints of chest pain or dyspnea. He further denies syncope, presyncope, PND, orthopnea, palpitations, change in lower extremity edema, and claudication. PAST MEDICAL HISTORY: 1. Presumed coronary artery disease -- anteroapical ischemia on nuclear stress test in May 1998. 2. 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 3. Permanent atrial fibrillation. 4. Hypertension. 5. Hypercholesterolemia. 6. Severe pulmonary hypertension. 7. Obstructive sleep apnea -- sleep study done remotely. 8. Diabetes mellitus. 9. Monoclonal gammopathy of undetermined significance. 10. GERD. 11. BPH. 12. Total hip replacements x3. 13. Bilateral intraocular lens implants. 14. Right eye blindness. 15. Glaucoma. 16. Macular degeneration. 17. DJD. MEDICATIONS: 1. Torsemide 20 mg p.o. daily. 2. Potassium 10 mEq daily. 3. Coumadin 1 mg daily. 4. Proscar 5 mg per day. 5. Flomax 0.4 mg daily. 6. Questran 4 grams b.i.d. 7. Cosopt eyedrops 1 drop b.i.d. 8. Combigan eyedrops 1 drop b.i.d. 9. Atenolol 25 mg daily -- on hold. ALLERGIES: CLOBETASOL. SOCIAL HISTORY: The patient is a . He lives alone, but the family is close. Quit tobacco use over 20 years ago. Does not use alcohol. FAMILY HISTORY: Noncontributory. REVIEW OF SYSTEMS: A 10-point review of systems was negative except for that described above. PHYSICAL EXAMINATION: GENERAL: This is a well-developed and well-nourished white male in no acute distress. VITAL SIGNS: Blood pressure 123/72 with an irregular pulse of 77. Respiratory rate is 18. The patient is afebrile at 36.6 degrees Celsius. Saturation 95% on room air. HEENT: Negative. NECK: Supple with full carotid upstrokes. No obvious bruits. Jugular venous pressure is flat at 90 degrees. There is no thyromegaly. CARDIOVASCULAR: Reveals an irregularly irregular rhythm with distant heart sounds. A 1/6 apical holosystolic murmur is noted. Right-sided S3 is also noted. LUNGS: Clear without rales, rhonchi, or wheezes. ABDOMEN: Soft and nontender without bruits. EXTREMITIES: Reveal intact radial artery pulses bilaterally. 1+ pretibial edema is noted bilaterally. LABORATORY DATA: CBC notes a hemoglobin 14.0, hematocrit 41.2, white count 4.8, and platelet count 209,000. Electrolytes note a sodium of 138, potassium 3.4, chloride 101, bicarb 31, BUN 21, creatinine 0.98, and glucose 110. Initial troponin I level is undetectable at less than 0.03. Followup value was less than 0.015. BNP is normal at 1276. INR is 1.5. EKG notes atrial fibrillation with PVCs or aberrant beats. Heart rate was 56. There is left axis deviation. An old anteroseptal and inferior myocardial infarction cannot be excluded. Chest x-ray notes cardiomegaly, emphysematous changes, but no evidence of congestive failure. Echocardiogram performed on November 04 noted mild left ventricular dysfunction with an ejection fraction of 45%-50%. The right ventricle was moderate to severely dilated as was the right atrium. There was evidence of right ventricular systolic dysfunction and mild to moderate mitral and tricuspid regurgitation. Calculated pulmonary artery systolic pressure was greater than 60 mmHg. media supervisor here notes atrial fibrillation with a controlled ventricular response. He did have a heart rate of 30 while sleeping. No significant pauses. IMPRESSION: Mr. Mojica was admitted with slow ventricular response to his atrial fibrillation. This may be secondary to his beta flynn therapy with atenolol orally and 2 eyedrop preparations, which containe timolol. However, his heart rate has improved since holding the atenolol. Should he demonstrate significant pauses or his heart rate becomes bradycardic, we may need to consider permanent pacemaking. Not necessary at this time. The patient does demonstrate cor pulmonale. I suspect this is related to severe pulmonary hypertension from untreated obstructive sleep apnea. It would be reasonable to repeat sleep study as an outpatient as his initial study was done numerous years ago. PLAN: 1. Agree with holding atenolol. 2. We may need to consider changing eyedrop preparations, so that no beta blockade is included. 3. Continue to observe on telemetry. 4. Determine if the pacemaking necessary in approximately 24 hours. 5. Would perform a sleep study as an outpatient. 6. Further recommendation is depending on his clinical course. [facility]
--- NOTE | 2017-01-07 11:28 | ECHOCARDIOGRAM REPORT ---
*NOTICE TO RECEIVING LIBERTARIAN AGENCY This information is strictly Confidential and protected under [place] law. [place] law prohibits you from making any further disclosure of this information unless further disclosure is expressly permitted by the written consent of the person to whom it pertains or is authorized by law. A general authorization for the release of medical or other information is not sufficient for this purpose. Hospital accepts no responsibility if the information is made available to any other person, INCLUDING THE PATIENT. Interpretation Summary * Name: THAIS SIMS Study Date: 01/07/2017 07:13 AM BP: 108/61 mmHg * Patient Location: C.2T\S\S242\S\2 HR: 61 * : 1925 (M/d/yyy) Gender: Male Height: 71 in * Age: 89 yrs Ethnicity: CA Weight: 182 lb * Ordering Physician: Jojo Carvalho * Referring Physician: Ramin Moore * Performed By: Dyan Brewster * * Reason For Study: A-FIB * BSA: 2.0 m2 * -- Conclusions -- * Left ventricular systolic function is normal. * No regional wall motion abnormalities noted. * Ejection Fraction = 55-60%. * Dilated right sided chambers. * Right ventricular dysfunction. * Mild valvular aortic stenosis. * There is mild to moderate mitral regurgitation. * There is mild to moderate tricuspid regurgitation. * Evidence of severe pulmonary hypertension. Procedure Details * A complete two-dimensional transthoracic echocardiogram was performed (2D, M-mode, Doppler and color flow Doppler). Left Ventricle * The left ventricle is normal in size. * There is normal left ventricular wall thickness. * Ejection Fraction = 55-60%. * Left ventricular systolic function is normal. * No regional wall motion abnormalities noted. Right Ventricle * The right ventricular cavity size is enlarged (proximal parasternal long axis right ventricular outflow tract dimension >3.3 cm). * The right ventricular systolic function is reduced as assessed by tricuspid annular plane systolic excursion (TAPSE) (TAPSE <1.6 cm). Atria * The left atrium is moderately dilated. * The right atrium is moderately dilated. * There is no evidence of atrial septal defect, but resolution does not allow assessment for a patent foramen ovale. Mitral Valve * The mitral valve is grossly normal. * There is no mitral valve stenosis. * There is mild to moderate mitral regurgitation. Tricuspid Valve * The tricuspid valve is not well visualized, but is grossly normal. * There is mild to moderate tricuspid regurgitation. * Right ventricular systolic pressure is elevated at >60mmHg. Aortic Valve * The aortic valve is tricuspid. The leaflet thickness if normal. There is no aortic stenosis, and no significant insufficiency. * Mild valvular aortic stenosis. * No aortic regurgitation is present. Pulmonic Valve * The pulmonary valve is not well seen, but the Doppler examination is normal without significant regurgitation or stenosis. Great Vessels * The aortic root is normal size. * Mildly dilated ascending aorta. * The pulmonary is not well visualized. Pericardium/Pleural * There is no pericardial effusion. Great Vessels * Dilated inferior vena cava with reduced collapsability with sniff indicates an elevated right atrial pressure of 15 mmHg MMode 2D Measurements and Calculations IVSd 1.5 cm IVSs 2.0 cm LVIDd 4.4 cm LVIDs 2.7 cm LVPWd 1.0 cm LVPWs 1.7 cm IVS/LVPW 1.4 FS 37.7 % EDV(Teich) 88.1 ml ESV(Teich) 28.1 ml EF(Teich) 68.1 % EDV(cubed) 85.7 ml ESV(cubed) 20.7 ml EF(cubed) 75.9 % % IVS thick 38.5 % % LVPW thick 63.7 % LV mass(C)d 204.1 grams LV mass(C)dI 100.7 grams/m\S\2 LV mass(C)s 209.4 grams LV mass(C)sI 103.4 grams/m\S\2 CO(Teich) 3.2 l/min CI(Teich) 1.6 l/min/m\S\2 SV(Teich) 60.0 ml SI(Teich) 29.6 ml/m\S\2 CO(cubed) 3.5 l/min CI(cubed) 1.7 l/min/m\S\2 SV(cubed) 65.0 ml SI(cubed) 32.1 ml/m\S\2 LA dimension 5.6 cm asc Aorta Diam 3.6 cm LVOT diam 1.8 cm LVOT area 2.6 cm\S\2 LVAd ap4 25.1 cm\S\2 LVLd ap4 6.7 cm EDV(MOD-sp4) 76.4 ml LVAs ap4 12.4 cm\S\2 LVLs ap4 5.7 cm ESV(MOD-sp4) 23.4 ml EF(MOD-sp4) 69.4 % LVAd ap2 21.1 cm\S\2 LVLd ap2 6.0 cm EDV(MOD-sp2) 61.9 ml LVAs ap2 10.8 cm\S\2 LVLs ap2 4.8 cm ESV(MOD-sp2) 21.4 ml EF(MOD-sp2) 65.4 % CO(MOD-sp4) 2.9 l/min CI(MOD-sp4) 1.4 l/min/m\S\2 SV(MOD-sp4) 53.0 ml SI(MOD-sp4) 26.2 ml/m\S\2 CO(MOD-sp2) 2.2 l/min CI(MOD-sp2) 1.1 l/min/m\S\2 SV(MOD-sp2) 40.5 ml SI(MOD-sp2) 20.0 ml/m\S\2 Doppler Measurements and Calculations MV E max elba 103.8 cm/sec MV A max elba 34.0 cm/sec MV E/A 3.1 MV dec time 0.28 sec Ao V2 max 192.7 cm/sec Ao max PG 14.9 mmHg Ao max PG (full) 11.4 mmHg LUIS(V,A) 1.2 cm\S\2 LUIS(V,D) 1.2 cm\S\2 LV V1 max PG 3.4 mmHg LV V1 max 92.6 cm/sec MR max elba 464.2 cm/sec MR max PG 86.2 mmHg PA V2 max 82.9 cm/sec PA max PG 2.8 mmHg PI end-d elba 43.4 cm/sec TR max elba 388.9 cm/sec
--- NOTE | 2017-01-07 15:31 | Progress Note ---
Subjective Date of Service: Jan 07, 2017. Subjective pt says he feels much better, he has noted some decreased exercise tolerance and generally fatigue of late, holding b flynn has helped pic up rate. he has no other concerns Problem List Medical Problems: (1) Atrial fibrillation Status: Chronic (2) Breast mass in male Status: Acute (3) CHF (congestive heart failure) Status: Acute (4) Fall Status: Acute (5) Hypokalemia Status: Acute (6) Pruritic dermatitis Status: Acute (7) Rash Status: Acute (8) Skin avulsion Status: Acute (9) Subtherapeutic international normalized ratio (INR) Status: Acute (10) Wound infection Status: Chronic Review of Systems Constitutional: + weakness, + fatigue, No fever, No chills Respiratory: + dyspnea on exertion, No cough, No shortness of breath Cardiac: No chest pain, No orthopnea, No PND, No edema Abdomen: No pain, No nausea, No vomiting, No diarrhea Musculoskeletal: No joint pain, No muscle pain Neurologic: No memory loss, No paralysis Objective Vital Signs Date Time Temp Pulse Resp B/P (MAP) Pulse Ox O2 Delivery O2 Flow Rate FiO2 01/07/17 07:36 36.6 77 18 123/72 (89) 95 01/07/17 04:00 Room Air 01/07/17 03:32 36.5 61 20 108/61 (77) 91 Room Air 01/07/17 00:00 Room Air 01/06/17 23:33 36.5 58 22 127/79 92 Room Air 01/06/17 23:14 36.4 61 18 107/54 (71) 95 Room Air 01/06/17 21:15 36.5 58 22 127/79 (95) 92 Room Air 01/06/17 20:56 50 20 140/66 98 Room Air 01/06/17 19:49 55 20 122/78 98 Room Air 01/06/17 18:43 97 Room Air 01/06/17 18:41 44 20 141/63 96 Room Air 01/06/17 18:33 46 01/06/17 18:04 96 Room Air 01/06/17 16:55 36.3 64 20 125/69 94 Room Air Physical Exam General Appearance: WD/WN, + mild distress Eyes: + pertinent finding (has right eye patched, left eye with diminished visual acuity) Neck: supple, + JVD Respiratory/Chest: chest non-tender, lungs clear, normal breath sounds Cardiovascular: + bradycardia, + systolic murmur Abdomen: normal bowel sounds, non tender, soft Extremities: + pedal edema (trace to 1+) Neurologic/Psychiatric: alert, oriented x 3 Laboratory Results Last 24 Hours Test 01/06/17 17:48 01/06/17 17:51 01/06/17 19:45 01/07/17 02:05 White Blood Count 4.93 K/uL Red Blood Count 4.44 M/uL Hemoglobin 14.1 g/dL Hematocrit 40.5 % Mean Corpuscular Volume 91.2 fL Mean Corpuscular Hemoglobin 31.8 pg Mean Corpuscular Hemoglobin Concent 34.8 g/dl Platelet Count 201 K/uL Mean Platelet Volume 8.4 fL Neutrophils (%) (Auto) 60.5 % Lymphocytes (%) (Auto) 21.3 % Monocytes (%) (Auto) 14.4 % Eosinophils (%) (Auto) 3.2 % Basophils (%) (Auto) 0.4 % Neutrophils # (Auto) 2.98 K/uL Lymphocytes # (Auto) 1.05 K/uL Monocytes # (Auto) 0.71 K/uL Eosinophils # (Auto) 0.16 K/uL Basophils # (Auto) 0.02 K/uL RDW Standard Deviation 49.9 fL RDW Coefficient of Variation 14.8 % Immature Granulocyte % (Auto) 0.2 % Immature Granulocyte # (Auto) 0.01 K/uL Prothrombin Time 16.6 SECONDS Prothromb Time International Ratio 1.5 Activated Partial Thromboplast Time 37.6 SECONDS Partial Thromboplastin Ratio 1.4 Sodium Level 137 mmol/L Potassium Level 3.1 mmol/L Chloride Level 98 mmol/L Carbon Dioxide Level 33 mmol/L Anion Gap 6.0 mmol/L Blood Urea Nitrogen 22 mg/dl Creatinine 1.10 mg/dl Est Creatinine Clear Calc Drug Dose 48.5 ml/min Estimated GFR () 68.6 Estimated GFR (Non- 59.2 BUN/Creatinine Ratio 20.2 Random Glucose 154 mg/dl Calcium Level 9.2 mg/dl Magnesium Level 2.2 mg/dl Total Bilirubin 0.5 mg/dl Direct Bilirubin 0.2 mg/dl Aspartate Amino Transf (AST/SGOT) 18 U/L Alanine Aminotransferase (ALT/SGPT) 22 U/L Alkaline Phosphatase 103 U/L Total Protein 8.3 gm/dl Albumin 3.4 gm/dl Lipase 178 U/L Bedside Troponin I < 0.030 ng/ml PH-Rsi-D-Type Natriuretic Peptide 1276 pg/ml Urine Color YELLOW Urine Appearance CLEAR Urine pH 7.0 Urine Specific [place] 1.008 Urine Protein NEG Urine Glucose (UA) NEG Urine Ketones NEG Urine Occult Blood NEG Urine Nitrite NEG Urine Bilirubin NEG Urine Urobilinogen NEG Urine Leukocyte Esterase NEG Troponin I < 0.015 ng/ml Test 01/07/17 05:16 White Blood Count 4.88 K/uL Red Blood Count 4.55 M/uL Hemoglobin 14.0 g/dL Hematocrit 41.2 % Mean Corpuscular Volume 90.5 fL Mean Corpuscular Hemoglobin 30.8 pg Mean Corpuscular Hemoglobin Concent 34.0 g/dl Platelet Count 209 K/uL Mean Platelet Volume 8.4 fL Neutrophils (%) (Auto) 48.6 % Lymphocytes (%) (Auto) 27.0 % Monocytes (%) (Auto) 19.7 % Eosinophils (%) (Auto) 3.9 % Basophils (%) (Auto) 0.8 % Neutrophils # (Auto) 2.37 K/uL Lymphocytes # (Auto) 1.32 K/uL Monocytes # (Auto) 0.96 K/uL Eosinophils # (Auto) 0.19 K/uL Basophils # (Auto) 0.04 K/uL RDW Standard Deviation 49.3 fL RDW Coefficient of Variation 14.9 % Immature Granulocyte % (Auto) 0.0 % Immature Granulocyte # (Auto) 0.00 K/uL Prothrombin Time 16.1 SECONDS Prothromb Time International Ratio 1.5 Sodium Level 138 mmol/L Potassium Level 3.4 mmol/L Chloride Level 101 mmol/L Carbon Dioxide Level 31 mmol/L Anion Gap 6.0 mmol/L Blood Urea Nitrogen 21 mg/dl Creatinine 0.98 mg/dl Est Creatinine Clear Calc Drug Dose 54.4 ml/min Estimated GFR () 78.9 Estimated GFR (Non- 68.1 BUN/Creatinine Ratio 21.6 Random Glucose 110 mg/dl Calcium Level 9.5 mg/dl Assessment and Plan 89 m with acute on chronic systolic heart failure and bradycardia chronic health problems are pulmonary hypertension, chronic atrial fibrillation/ aflutter on anticoagulation, hyperlipidemia, hypertension, anemia, Lyme's disease, GERD, osteoarthritis, macular degeneration with 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 Pt had been taking torsemide 40 mg QAM which was recently increased plus metolazone 5 mg on 01/04 and 01/05 for weight gain. - Consult cardiology, follows with Dr. Rouse as an outpatient,he did review ECHO, systolic function is good, does have dilated right heart and likely pulmonary htn based on undertreated sleep apnea, will have nocturnal oxymetry and needs outpt sleep study Hypokalemia replete Hx of atrial flutter and fibrillation anticoagulation- Continue coumadin, INR = 1.5, adjust and follow coumadin Osteoarthritis - Uses a crutch to assist with ambulation, lives at home alone, PT/OT evals once heart rate improved BPH voiding continue Flomax 0.4mg daily and finasteride 5 mg daily DVT ppx: Teds, scds, coumadin CODE STATUS: DNR
[2017-01-07] MEDS ORDERED: WARFARIN SOD 1 MG TAB PO SCH (16:00)
[2017-01-07] MEDS ORDERED: POTASSIUM CHLORIDE 20 MEQ TABCR PO ONE (16:00)
[2017-01-07] MEDS: TRAMADOL/ACETAMINOPHEN 37.5/325MG TAB PO PRN (16:54)
[2017-01-08] VITALS (8 sets, daily range): BP systolic 107–130; BP diastolic 66–74; PULSE 58–84; TEMP 36.3–36.7; O2SAT 92–97
[2017-01-08 05:59] LABS: BASO % 1.1 %; BASO ABS # 0.05 K/uL (0-0.2); COMPLETE YES; EOS % 4.5 %; HEMATOCRIT 42.4 % (42-52); LYMPH % 30.9 %; LYMPH ABS # 1.37 K/uL (1.2-3.4); MEAN CELL VOLUME 92.2 fL (80-100); MEAN CORPUSCULAR HEMOGLOBIN 31.3 pg (25-34); MEAN PLATELET VOLUME 8.3 fL (7.4-10.4); MONO % 20.3 %; NEUT % 43.2 %; PLATELET COUNT 189 K/uL (130-400); WHITE BLOOD COUNT 4.44 K/uL (4.8-10.8)
[2017-01-08 06:04] LABS: INR 1.4 (0.9-1.1); PROTHROMBIN TIME (PATIENT) 15.4 SECONDS (9.0-12.0)
[2017-01-08 06:47] LABS: CALCIUM 9.3 mg/dl (8.5-10.1); CREATININE 0.98 mg/dl (0.60-1.40)
[2017-01-08] MEDS: COMBIGAN~ORDER AWAITING ACTION SCH ×2 (08:00→15:03)
[2017-01-08] MEDS: FINASTERIDE 5 MG TAB PO SCH (09:00)
[2017-01-08] MEDS: DORZOLAMIDE/TIMOLOL 22.3/6.8MG/ML 10 ML BTL OPB SCH ×2 (09:00→20:34)
[2017-01-08] MEDS: TORSEMIDE 20 MG TAB PO SCH (09:00)
[2017-01-08] MEDS: CEROVITE ADV FORMULA TAB PO SCH ×2 (09:00→20:35)
[2017-01-08] MEDS: TAMSULOSIN HCL 0.4 MG CAP PO SCH (09:00)
[2017-01-08] MEDS: POTASSIUM CHLORIDE 20 MEQ TABCR PO SCH (09:00)
--- NOTE | 2017-01-08 11:48 | CARDIOLOGY PROGRESS NOTE ---
DATE: 01/08/2017 SUBJECTIVE: Mr. Mojica is resting comfortably at the bedside without complaints of chest pain, dyspnea, palpitations, or syncope. Did have an episode of "lightheadedness" yesterday afternoon. Heart rate was diminished at that time. OBJECTIVE: VITAL SIGNS: Blood pressure is 114/74 with a regular pulse of 80. Respiratory rate is 18. The patient is afebrile at 36.4 degrees Celsius. Saturation is 96% on room air. NECK: Supple with full carotid upstrokes. There are no carotid bruits. Jugular venous pressure is flat at 90 degrees. There is no thyromegaly. CARDIOVASCULAR: Reveals an irregularly irregular rhythm with distant heart sounds. A 1/6 apical holosystolic murmur is noted. A right-sided S3 is also noted. LUNGS: Clear without rales, rhonchi, or wheezes. ABDOMEN: Soft and nontender without bruits. EXTREMITIES: Reveal intact radial artery pulses bilaterally. 1+ pretibial edema is noted. LABORATORY DATA: CBC notes hemoglobin 14.4, hematocrit 42.4, white count 4.4, and platelet count 189,000. Electrolytes note a sodium of 138, potassium 4.0, chloride 101, bicarb 32, BUN 23, creatinine 0.98, and glucose 113. Third troponin I levels are undetectable at less than 0.015. surveillance system monitor noted several 3.2-second pauses overnight. Heart rate was down to 29 beats per minute at one point. With physical activity this morning, heart rate accelerated up to 120. IMPRESSION AND PLAN: 1. Tachycardia/bradycardia syndrome - the patient continues to note decreased heart rates and pauses of 3.2 seconds since discontinuation of atenolol. Did accelerate heart rate today with physical activity up to 120. He will likely need reinitiation of atenolol; however, it appears he may need permanent pacemaking prior to that reinitiation. We will discuss with Dr. Valladares and Dr. Gale tomorrow morning. 2. Chronic diastolic congestive heart failure -- compensated at this time. Echocardiogram done yesterday notes normalization of left ventricular systolic function when compared with an echocardiogram performed in October. 3. Presumed coronary artery disease -- anteroapical ischemia on nuclear stress test in May 1998. 4. Cor pulmonale -- with dilatation of right-sided chambers and right ventricular dysfunction noted on echocardiogram. I have discussed the need for a repeat sleep study as an outpatient. May benefit from CPAP at night. 5. Severe pulmonary hypertension. 6. Hypertension -- controlled. 7. Hypercholesterolemia. MTDD
--- NOTE | 2017-01-08 12:30 | Progress Note ---
Subjective Date of Service: Jan 08, 2017. Subjective Patient feels well this morning but was noted by cardiology that he had a 3 second pause last night, cardiology would like him to be considered for pacemaker and he'll be evaluated on the by electrophysiology. The patient himself is no complaints states he feels well his and son at the bedside and were updated Problem List Medical Problems: (1) Atrial fibrillation Status: Chronic (2) Breast mass in male Status: Acute (3) CHF (congestive heart failure) Status: Acute (4) Fall Status: Acute (5) Hypokalemia Status: Acute (6) Pruritic dermatitis Status: Acute (7) Rash Status: Acute (8) Skin avulsion Status: Acute (9) Subtherapeutic international normalized ratio (INR) Status: Acute (10) Wound infection Status: Chronic Review of Systems Constitutional: No fever, No chills, No weight loss, No weakness Respiratory: No cough, No sputum, No shortness of breath, No dyspnea on exertion Cardiac: No chest pain, No orthopnea, No PND, No edema Abdomen: No pain, No nausea, No vomiting, No diarrhea Musculoskeletal: No joint pain, No muscle pain Psychiatric: No depression symptoms, No anhedonism Objective Vital Signs Date Time Temp Pulse Resp B/P (MAP) Pulse Ox O2 Delivery O2 Flow Rate FiO2 01/08/17 12:00 Room Air 01/08/17 11:57 36.3 84 19 107/68 (81) 93 Room Air 01/08/17 08:00 Room Air 01/08/17 07:19 36.4 81 17 114/74 (87) 96 Room Air 01/08/17 04:00 36.7 60 18 118/71 (87) 92 Room Air 01/08/17 04:00 97 Room Air 01/08/17 00:01 36.6 58 20 108/66 (80) 97 Room Air 01/08/17 00:01 97 Room Air 01/07/17 20:00 94 Room Air 01/07/17 19:25 36.4 79 22 127/76 (93) 94 Room Air 01/07/17 16:00 Room Air 01/07/17 15:38 36.6 66 20 108/65 (79) 90 Room Air Physical Exam General Appearance: WD/WN, + mild distress Neck: supple, no JVD Respiratory/Chest: lungs clear, normal breath sounds Cardiovascular: + systolic murmur, + irregularly irregular (at times) Abdomen: normal bowel sounds, non tender, soft Extremities: no pedal edema, no calf tenderness Neurologic/Psychiatric: alert, oriented x 3 Laboratory Results Last 24 Hours Test 01/08/17 05:41 White Blood Count 4.44 K/uL Red Blood Count 4.60 M/uL Hemoglobin 14.4 g/dL Hematocrit 42.4 % Mean Corpuscular Volume 92.2 fL Mean Corpuscular Hemoglobin 31.3 pg Mean Corpuscular Hemoglobin Concent 34.0 g/dl Platelet Count 189 K/uL Mean Platelet Volume 8.3 fL Neutrophils (%) (Auto) 43.2 % Lymphocytes (%) (Auto) 30.9 % Monocytes (%) (Auto) 20.3 % Eosinophils (%) (Auto) 4.5 % Basophils (%) (Auto) 1.1 % Neutrophils # (Auto) 1.92 K/uL Lymphocytes # (Auto) 1.37 K/uL Monocytes # (Auto) 0.90 K/uL Eosinophils # (Auto) 0.20 K/uL Basophils # (Auto) 0.05 K/uL RDW Standard Deviation 51.2 fL RDW Coefficient of Variation 15.1 % Immature Granulocyte % (Auto) 0.0 % Immature Granulocyte # (Auto) 0.00 K/uL Prothrombin Time 15.4 SECONDS Prothromb Time International Ratio 1.4 Sodium Level 138 mmol/L Potassium Level 4.0 mmol/L Chloride Level 101 mmol/L Carbon Dioxide Level 32 mmol/L Anion Gap 5.0 mmol/L Blood Urea Nitrogen 23 mg/dl Creatinine 0.98 mg/dl Est Creatinine Clear Calc Drug Dose 54.4 ml/min Estimated GFR () 78.9 Estimated GFR (Non- 68.1 BUN/Creatinine Ratio 23.0 Random Glucose 113 mg/dl Calcium Level 9.3 mg/dl Assessment and Plan 89 m with acute on chronic systolic heart failure and bradycardia noticed to have some sinus pauses evaluation for pacemaker chronic health problems are pulmonary hypertension, chronic atrial fibrillation/ aflutter on anticoagulation, hyperlipidemia, hypertension, anemia, Lyme's disease, GERD, osteoarthritis, macular 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 Pt had been taking torsemide 40 mg QAM which was recently increased plus metolazone 5 mg on 01/04 and 01/05 for weight gain. - Consult cardiology, follows with Dr. Rouse as an outpatient,he did review ECHO, systolic function is good, does have dilated right heart and likely pulmonary htn based on undertreated sleep apnea, will have nocturnal oxymetry and needs outpt sleep study, discussed with case management if [facility] Hypokalemia replete Hx of atrial flutter and fibrillation anticoagulation- Continue coumadin, initially low will be held in the evening of the in preparation for possible procedure on the Osteoarthritis - Uses a crutch to assist with ambulation, lives at home alone, PT/OT evals once heart rate improved BPH voiding continue Flomax 0.4mg daily and finasteride 5 mg daily DVT ppx: Teds, scds, coumadin CODE STATUS: DNR
[2017-01-08] MEDS: TRAMADOL/ACETAMINOPHEN 37.5/325MG TAB PO PRN (21:15)
[2017-01-09] VITALS (19 sets, daily range): BP systolic 87–144; BP diastolic 54–81; PULSE 50–89; TEMP 36.4–36.8; O2SAT 89–98
[2017-01-09 05:51] LABS: BASO % 0.9 %; BASO ABS # 0.05 K/uL (0-0.2); COMPLETE YES; EOS % 4.9 %; HEMATOCRIT 44.3 % (42-52); IG% 0.2 %; LYMPH % 28.3 %; LYMPH ABS # 1.57 K/uL (1.2-3.4); MEAN CELL VOLUME 92.1 fL (80-100); MEAN CORPUSCULAR HEMOGLOBIN 31.8 pg (25-34); MEAN CORPUSCULAR HGB CONC 34.5 g/dl (32-36); MEAN PLATELET VOLUME 8.6 fL (7.4-10.4); MONO % 19.5 %; NEUT % 46.2 %; PLATELET COUNT 214 K/uL (130-400); RED BLOOD COUNT 4.81 M/uL (4.7-6.1); WHITE BLOOD COUNT 5.55 K/uL (4.8-10.8)
[2017-01-09 05:57] LABS: INR 1.3 (0.9-1.1); PROTHROMBIN TIME (PATIENT) 13.8 SECONDS (9.0-12.0)
[2017-01-09] MEDS: COMBIGAN~ORDER AWAITING ACTION SCH ×4 (08:00→23:05)
[2017-01-09] MEDS: DORZOLAMIDE/TIMOLOL 22.3/6.8MG/ML 10 ML BTL OPB SCH ×2 (08:18→20:39)
[2017-01-09] MEDS: CEROVITE ADV FORMULA TAB PO SCH ×2 (08:19→20:40)
[2017-01-09] MEDS: TAMSULOSIN HCL 0.4 MG CAP PO SCH (08:19)
[2017-01-09] MEDS: POTASSIUM CHLORIDE 20 MEQ TABCR PO SCH (08:19)
[2017-01-09] MEDS: FINASTERIDE 5 MG TAB PO SCH (08:19)
[2017-01-09] MEDS: TORSEMIDE 20 MG TAB PO SCH (08:20)
[2017-01-09] MEDS ORDERED: LACTATED RINGER'S 1000ML 1,000 ML IV ONE (08:49)
[2017-01-09] MEDS: POLYETHYLENE (MIRALAX) 17 GM PACK PO SCH ×2 (09:00→20:40)
[2017-01-09] MEDS: SENNA 8.6 MG TAB PO SCH (09:00)
--- NOTE | 2017-01-09 09:07 | Cardiology Consultation ---
Cardiology Consultation Date of Consultation: Jan 09, 2017. Requesting Physician: Dr. Rouse Reason for Consultation: Atrial fibrillation with fast and slow ventricular response Pt evaluation today including: conversation w/ patient, physical exam, lab review, review of studies, conversation w/ territory sales consultant, review of inpatient medication list History of Present Illness This is a very pleasant 89-year-old gentleman, who lives by himself, and has a history of permanent atrial fibrillation. He may have a history of coronary artery disease and has an ejection fraction of 45-50% by echocardiography in October 2016. He has pulmonary hypertension with moderate right ventricular systolic dysfunction. He presented with a feeling of intermittent dizziness and a "sinking" sensation, he was noted to have a heart rate in the 50s by home nursing. Normally his heart rate is in the 70s therefore he was sent to the emergency room. At home he takes atenolol 25 mg daily and warfarin. Although this is a low dose of atenolol was held, and even several days later he was having pauses as long as 3.2 seconds at night and heart rates in the 40s. With walking his heart rate was often around 120, although he was not aware of the rapid heart rate. With his other cardiac conditions and for heart rate control he should be on beta blockade, and therefore he requires a pacemaker for bradycardia support. His INR has nearly normalized. Past Medical/Surgical History (1) Lyme disease (2) Diabetes mellitus (3) Hyperlipidemia (4) Hypertension (5) CHF (congestive heart failure) (6) Atrial fibrillation Family History FH: stroke FHx: cancer Social History Smoking Status: Former Smoker History of Alcohol Use: Yes (BEER, 2 A DAY) Review of Systems Constitutional: No fever, No weight loss, No weakness Respiratory: No cough, No sputum, No shortness of breath, No dyspnea on exertion Cardiac: + see HPI, + problem reported ("sinking" sensation associated with bradycardia), No chest pain, No orthopnea, No PND, No edema Abdomen: No pain, No nausea, No vomiting, No diarrhea, No GI bleeding Male : No urinary frequency, No nocturia more than once/night, No slowing stream, No sexual dysfunction Neurologic: No paralysis, No weakness, No numbness/tingling, No balance problems Heme: No abnormal bleeding/bruising, No clotting problems Endo: No fatigue Skin: No problem reported All Other Systems: Reviewed and Negative Allergies Coded Allergies: Clobetasol (Unverified Allergy, Severe, ITCHING, 01/06/17) Medications Current Inpatient Medications Medications (Trade) Dose Ordered Sig/Celeste Route Start Time Stop Time Status Last Admin Dose Admin Acetaminophen (Tylenol Tab) 650 mg Q4H PRN PO 01/06/17 19:45 02/05/17 19:44 Ondansetron HCl (Zofran Inj) 4 mg Q6H PRN IV 01/06/17 19:45 02/05/17 19:44 Polyethylene (Miralax Powder Packet) 17 gm DAILY PRN PO 01/06/17 19:45 02/05/17 19:44 Dorzolamide/ Timolol (Cosopt Op Soln) 1 drops BID OPB 01/06/17 21:00 02/05/17 20:59 01/09/17 08:18 1 DROPS Finasteride (Proscar Tab) 5 mg DAILY PO 01/07/17 09:00 02/06/17 08:59 01/09/17 08:19 5 MG Multivitamins/ Minerals (Multivitamin W/ Minerals Tab) 1 tab BID PO 01/06/17 21:00 02/05/17 20:59 01/09/17 08:19 1 TAB Tamsulosin HCl (Flomax Cap) 0.4 mg DAILY PO 01/07/17 09:00 02/06/17 08:59 01/09/17 08:19 0.4 MG Tramadol/ Acetaminophen (Ultracet Tab) 2 tab TID PRN PO 01/06/17 19:45 02/05/17 19:44 01/08/17 21:15 2 TAB Miscellaneous Information (Order Awaiting Action) 1 ea QS N/A 01/07/17 00:00 02/06/17 00:00 Potassium Chloride (Klor-Con Tab) 10 meq DAILY PO 01/07/17 09:00 02/06/17 08:59 01/09/17 08:19 10 MEQ Torsemide (Demadex Tab) 20 mg QAM PO 01/07/17 09:00 02/06/17 08:59 01/09/17 08:20 20 MG Warfarin Sodium (Coumadin Tab) 1 mg DAILY@16 PO 01/07/17 16:00 01/09/17 15:59 Future Hold 01/07/17 16:50 1 MG Polyethylene (Miralax Powder Packet) 17 gm BID PO 01/09/17 09:00 02/08/17 08:59 Senna (Senokot Tab) 17.2 mg QAM PO 01/09/17 09:00 02/08/17 08:59 Cefazolin Sodium (Ancef 1000mg/55 ml D5W) 1,000 mg PREOP IV 01/10/17 06:00 01/10/17 06:01 UNV Lactated Ringer's 1,000 ml @ 15 mls/hr Q24H ONCE IV 01/09/17 08:49 01/10/17 08:48 UNV Physical Exam Vital Signs Past 12 Hours Date Time Temp Pulse Resp B/P (MAP) Pulse Ox O2 Delivery O2 Flow Rate FiO2 01/09/17 07:24 36.4 86 20 137/76 (96) 91 Room Air 01/09/17 05:11 36.4 58 22 123/72 93 Room Air 01/09/17 04:00 93 Room Air 01/09/17 03:14 36.4 58 22 123/72 (89) 93 Room Air 01/09/17 00:01 96 Room Air 01/08/17 23:05 36.4 72 20 130/72 (91) 96 Room Air Constitutional: General Apperance: heathly-appearing Level of Distress: NAD Psychiatric: Mental Status: active & alert Head: normocephalic Eyes: EOM: EOMI, pertinent finding (right eye blindness from a childhood injury) ENMT: hearing grossly normal Neck: supple, no masses Lungs: Respiratory effort: no dyspnea, good air movement Auscultation: breath sounds normal, no wheezing Cardiovascular: Heart Auscultation: no rubs, no gallops, I/ WSM, irregular rate rhythm Peripheral Pulses: Bruits: none appreciated Abdomen: Bowel Sounds: normal Inspection & Palpation: soft, no tenderness, guarding & rebound, no masses Musculoskeletal: normal strength (5/5 throughout) Extremities: pertinent finding (signs of chronic venous stasis) Neurologic: Cranial Nerves: grossly intact Sensation: grossly intact Data Laboratory Results: Last 24 Hours Test 01/09/17 05:27 White Blood Count 5.55 K/uL Red Blood Count 4.81 M/uL Hemoglobin 15.3 g/dL Hematocrit 44.3 % Mean Corpuscular Volume 92.1 fL Mean Corpuscular Hemoglobin 31.8 pg Mean Corpuscular Hemoglobin Concent 34.5 g/dl Platelet Count 214 K/uL Mean Platelet Volume 8.6 fL Neutrophils (%) (Auto) 46.2 % Lymphocytes (%) (Auto) 28.3 % Monocytes (%) (Auto) 19.5 % Eosinophils (%) (Auto) 4.9 % Basophils (%) (Auto) 0.9 % Neutrophils # (Auto) 2.57 K/uL Lymphocytes # (Auto) 1.57 K/uL Monocytes # (Auto) 1.08 K/uL Eosinophils # (Auto) 0.27 K/uL Basophils # (Auto) 0.05 K/uL RDW Standard Deviation 50.6 fL RDW Coefficient of Variation 14.9 % Immature Granulocyte % (Auto) 0.2 % Immature Granulocyte # (Auto) 0.01 K/uL Prothrombin Time 13.8 SECONDS Prothromb Time International Ratio 1.3 Imaging: Chest x-ray shows cardiomegaly, no sign of congestive heart failure EKG: Admission electrocardiogram shows atrial fibrillation with a heart rate of 56 bpm, inferior and anterior ST-T abnormalities. Telemetry reviewed: Atrial fibrillation throughout, wide heart rate range including symptomatic bradycardia in the 40s and heart rates in the 120 bpm range with activity. pause of 3.2 seconds. Assessment & Plan #1. Atrial fibrillation: This is permanent, and he is on warfarin as an anticoagulant. #2. Symptomatic bradycardia: He has periods of slow conduction of his atrial fibrillation with heart rates in the 50s while awake and a "sinking" sensation. This is intermittent, on arrival his heart rate appeared well controlled on low- dose atenolol. With discontinuation of atenolol he continues to have pauses and relative bradycardia although he feels better in general, heart rate still is rapid with activity and with his probable coronary artery disease this is not ideal. He does live alone and is quite active in general. He should've a pacemaker for bradycardia support. He probably should be on an a beta flynn over the long run for rate control and his coronary artery disease as well as hypertension. I discussed the indications, procedure, risks and alternatives of pacemaker implantation with him (single-chamber) and he understands and agrees to proceed. We will plan on placing a pacemaker today from the left side. Consent obtained. Thank you for allowing me to participate in his care.
--- NOTE | 2017-01-09 09:35 | Hospitalist Progress Note ---
Hospitalist Progress Note Date of Service Jan 09, 2017. (Robina Li ., JUSTEN) Subjective Pt evaluation today including: conversation w/ patient, physical exam, chart review, lab review, review of studies, conversation w/ review consultant Voiding: no voiding problems, no incontinence Patient states he is feeling well. NPO for permanent pacemaker this afternoon. Patient denies any fever, chills, sweats, lightheadedness, dizziness, vision changes, CP, palpitations, edema, SOB, wheezing, cough, abdominal pain, nausea, vomiting, diarrhea, urinary symptoms, melena, numbness/tingling, weakness, muscle/joint pain, anxiety/depression, active bleeding, or new skin discoloration/changes. (Robina Li ., ORINC) Medications Current Inpatient Medications Medications (Trade) Dose Ordered Sig/Celeste Route Start Time Stop Time Status Last Admin Dose Admin Acetaminophen (Tylenol Tab) 650 mg Q4H PRN PO 01/06/17 19:45 02/05/17 19:44 Ondansetron HCl (Zofran Inj) 4 mg Q6H PRN IV 01/06/17 19:45 02/05/17 19:44 Polyethylene (Miralax Powder Packet) 17 gm DAILY PRN PO 01/06/17 19:45 02/05/17 19:44 Dorzolamide/ Timolol (Cosopt Op Soln) 1 drops BID OPB 01/06/17 21:00 02/05/17 20:59 01/09/17 08:18 1 DROPS Finasteride (Proscar Tab) 5 mg DAILY PO 01/07/17 09:00 02/06/17 08:59 01/09/17 08:19 5 MG Multivitamins/ Minerals (Multivitamin W/ Minerals Tab) 1 tab BID PO 01/06/17 21:00 02/05/17 20:59 01/09/17 08:19 1 TAB Tamsulosin HCl (Flomax Cap) 0.4 mg DAILY PO 01/07/17 09:00 02/06/17 08:59 01/09/17 08:19 0.4 MG Tramadol/ Acetaminophen (Ultracet Tab) 2 tab TID PRN PO 01/06/17 19:45 02/05/17 19:44 01/08/17 21:15 2 TAB Miscellaneous Information (Order Awaiting Action) 1 ea QS N/A 01/07/17 00:00 02/06/17 00:00 Potassium Chloride (Klor-Con Tab) 10 meq DAILY PO 01/07/17 09:00 02/06/17 08:59 01/09/17 08:19 10 MEQ Torsemide (Demadex Tab) 20 mg QAM PO 01/07/17 09:00 02/06/17 08:59 01/09/17 08:20 20 MG Warfarin Sodium (Coumadin Tab) 1 mg DAILY@16 PO 01/07/17 16:00 01/09/17 15:59 Future Hold 01/07/17 16:50 1 MG Polyethylene (Miralax Powder Packet) 17 gm BID PO 01/09/17 09:00 02/08/17 08:59 Senna (Senokot Tab) 17.2 mg QAM PO 01/09/17 09:00 02/08/17 08:59 Lactated Ringer's 1,000 ml @ 15 mls/hr Q24H ONCE IV 01/09/17 08:49 01/10/17 08:48 Cefazolin Sodium 2000 mg/Dextrose 60 ml @ 110 mls/hr TODAY@1115 IV 01/09/17 11:15 01/09/17 18:00 (Robina Li, JUSTEN) Objective Vital Signs Date Time Temp Pulse Resp B/P (MAP) Pulse Ox O2 Delivery O2 Flow Rate FiO2 01/09/17 07:24 36.4 86 20 137/76 (96) 91 Room Air 01/09/17 05:11 36.4 58 22 123/72 93 Room Air 01/09/17 04:00 93 Room Air 01/09/17 03:14 36.4 58 22 123/72 (89) 93 Room Air 01/09/17 00:01 96 Room Air 01/08/17 23:05 36.4 72 20 130/72 (91) 96 Room Air 01/08/17 20:00 95 Room Air 01/08/17 19:43 36.5 81 18 113/69 (84) 95 Room Air 01/08/17 16:00 Room Air 01/08/17 15:24 36.3 64 20 113/66 (82) 94 Room Air 01/08/17 12:00 Room Air 7/23/17 11:57 36.3 84 19 107/68 (81) 93 Room Air (Robina Li PA-C) Physical Exam General Appearance: no apparent distress Eyes: PERRL ENT: hearing grossly normal, + pertinent finding (darkened lens over right eye ) Neck: supple Respiratory/Chest: lungs clear, no respiratory distress, no accessory muscle use Cardiovascular: + systolic murmur, + irregularly irregular (rate controlled) Abdomen: normal bowel sounds, non tender, soft Extremities: + pertinent finding (chronic stasis dermatitis changes noted to bilateral lower extremity anterior torres regions ) Neurologic/Psychiatric: alert, normal mood/affect, oriented x 3 Skin: normal color, warm/dry, no rash (Robina Li PA-C) Laboratory Results Last 24 Hours Test 01/09/17 05:27 White Blood Count 5.55 K/uL Red Blood Count 4.81 M/uL Hemoglobin 15.3 g/dL Hematocrit 44.3 % Mean Corpuscular Volume 92.1 fL Mean Corpuscular Hemoglobin 31.8 pg Mean Corpuscular Hemoglobin Concent 34.5 g/dl Platelet Count 214 K/uL Mean Platelet Volume 8.6 fL Neutrophils (%) (Auto) 46.2 % Lymphocytes (%) (Auto) 28.3 % Monocytes (%) (Auto) 19.5 % Eosinophils (%) (Auto) 4.9 % Basophils (%) (Auto) 0.9 % Neutrophils # (Auto) 2.57 K/uL Lymphocytes # (Auto) 1.57 K/uL Monocytes # (Auto) 1.08 K/uL Eosinophils # (Auto) 0.27 K/uL Basophils # (Auto) 0.05 K/uL RDW Standard Deviation 50.6 fL RDW Coefficient of Variation 14.9 % Immature Granulocyte % (Auto) 0.2 % Immature Granulocyte # (Auto) 0.01 K/uL Prothrombin Time 13.8 SECONDS Prothromb Time International Ratio 1.3 (Robina Li PA-C) Assessment and Plan This is a 89 with PMHx of chronic systolic and at bedtime with an EF equals 45- 50%, pulmonary hypertension, chronic atrial fibrillation on anticoagulation, atrial flutter, hyperlipidemia, hypertension, anemia, Lyme's disease, GERD, osteoarthritis, macular degeneration, 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 Symptomatic bradycardia: - Admit to telemetry for cardiac monitoring - Trended cardiac enzymes- negative - Atenolol 25 mg daily held - Consult cardiology, appreciate recommendations -- Single-chambered pacemaker implantation on 01/09 for bradycardia Hypokalemia, 3.1 on admission- RESOLVED: Replaced w/ PO + IV potassium supplement, continue KCL 20 mEq daily, and follow PRP Chronic diastolic CHF- compensated, pulmonary hypertension, HTN- STABLE: - BNP of 1276 on admission- treated w/ IV Lasix 20 mg x1 - ECHO * Left ventricular systolic function is normal. * No regional wall motion abnormalities noted. * Ejection Fraction = 55-60%. * Dilated right sided chambers. * Right ventricular dysfunction. * Mild valvular aortic stenosis. * There is mild to moderate mitral regurgitation. * There is mild to moderate tricuspid regurgitation. * Evidence of severe pulmonary hypertension. 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 I agree w/ the muro components of her documentation. Pt NPO and preparing for pacer insertion (I saw the patient on AM rounds). Denied any dyspnea. Tele overnight stable with episodes of bradycardia and tachycardia continuing. No dizziness today either. VSS no fever gen - NAD neck - no obvious JVD heart - irregular, s1, s2, 2/6 systolic murmur RUSB lungs - CTA b/l abd - soft ext - trace edema skin - chronic stasis changes b/l shins A/P: 1. acute/chronic diastolic CHF in setting of chronic cor pulmonale - acute component resolved. 2. chronic cor pulmonale - needs w/u for CORTNEY, etc after discharge. 3. a. fib with tachy-barb syndrome - to EP lab today for pacer insertion by Dr. Valladares; holding coumadin. 4. severe pulmonary HTN - assess for ambulatory O2 needs at time of discharge. Jude Springer MD (Jude Springer MD)
--- NOTE | 2017-01-09 09:46 | CARDIOLOGY PROGRESS NOTE ---
DATE: 01/09/2017 SUBJECTIVE: Mr. Mojica is resting comfortably in bed without complaints of chest pain, dyspnea, palpitations, syncope, or presyncope. We have discussed a need for a permanent pacemaker. Dr. Valladares is at the bedside. OBJECTIVE: VITAL SIGNS: Blood pressure 137/76 with an irregular pulse of 80. Respiratory rate is 20. The patient is afebrile at 36.4 degrees Celsius. Saturation is 91% on room air. NECK: Supple with full carotid upstrokes. There are no carotid bruits. Jugular venous pressure is flat at 90 degrees. There is no thyromegaly. CARDIOVASCULAR: Reveals an irregularly irregular rhythm with distant heart sounds. A 1/6 apical systolic murmur is noted. A right-sided S3 is present. LUNGS: Clear without rales, rhonchi, or wheezes. ABDOMEN: Soft and nontender without bruits. EXTREMITIES: Reveal intact radial artery pulses bilaterally. 1+ pretibial edema is noted. LABORATORY DATA: CBC notes hemoglobin of 15.3, hematocrit 44.3, white count 5.5, and platelet count 214,000. Electrolytes note a sodium of 138, potassium 4.0, chloride 101, bicarb 32, BUN 23, creatinine 0.98, and glucose of 113. INR is 1.3. site monitor notes atrial fibrillation ranging from 40 beats per minute when asleep and up to 140 beats per minute with physical activity. IMPRESSION AND PLAN: 1. Tachycardia/bradycardia syndrome -- as above, the patient's heart rate accelerates to 140 beats per minute with physical activity. He is currently off his atenolol. He did demonstrate 3.2-second pauses on a monitor 2 days ago. This was without the influence of atenolol. Dr. Valladares plans to proceed with a permanent pacemaker later today. 2. Chronic diastolic congestive heart failure -- compensated at this time. Echocardiogram notes normal left ventricular systolic function, which has improved when compared with an echocardiogram performed back in October. 3. Presumed coronary artery disease - anteroapical ischemia on nuclear stress test in May 1998. 4. Cor pulmonale -- with dilatation of right-sided chambers and right ventricular dysfunction. We have discussed the need for repeat sleep study as an outpatient. 5. Severe pulmonary hypertension. 6. Hypertension -- controlled. 7. Hypercholesterolemia.
[2017-01-09] MEDS ORDERED: NURSING VERBAL MED ORDER ONE (11:00)
[2017-01-09] MEDS ORDERED: CEFAZOLIN IV 2,000 MG in DEXTROSE 5% 50ML 50 ML IV SCH (11:15)
[2017-01-09] MEDS ORDERED: LIDOCAINE HCL 1% 20 ML VIAL ONE ×2 (11:35→12:19)
[2017-01-09] MEDS ORDERED: BACITRACIN OINT 0.9 GM PKT ONE (11:35)
[2017-01-09] MEDS ORDERED: BACITRACIN 50000 UNIT VIAL ONE (11:35)
[2017-01-09] MEDS ORDERED: MIDAZOLAM HCL 5 MG/ML 1 ML VIAL ONE (11:38)
[2017-01-09] MEDS ORDERED: FENTANYL CITRATE INJ 50 MCG/1 ML 2 ML VIAL ONE (11:38)
--- NOTE | 2017-01-09 11:40 | Procedure Note ---
Pre-Mod Sedation Assessment General Date of Moderate Sedation: Jan 09, 2017. Vital Signs: Vital Signs Past 12 Hours Date Time Temp Pulse Resp B/P (MAP) Pulse Ox O2 Delivery O2 Flow Rate FiO2 01/09/17 11:28 36.5 89 19 124/69 92 Room Air 01/09/17 11:04 36.5 19 124/69 (87) 92 Room Air 01/09/17 08:00 Room Air 01/09/17 07:24 36.4 86 20 137/76 (96) 91 Room Air 01/09/17 05:11 36.4 58 22 123/72 93 Room Air 01/09/17 04:00 93 Room Air 01/09/17 03:14 36.4 58 22 123/72 (89) 93 Room Air 01/09/17 00:01 96 Room Air Review Cardiovascular: + irregularly irregular Abdomen: normal bowel sounds Lungs: lungs clear Pre-Sedation Airway Assessment Oral Cavity: Dentures Short Thick Neck: No Hx of Sleep Apnea: No Smoking Status: Former Smoker Procedure Planning Contraindications-for Mod Sed: None Yes Notes The planned sedation has been discussed with the patient and consent obtained. I have identified the patient, determined the appropriateness of sedation and have assessed the patient immediately prior to the procedure. All medicine(s) and interventions are by my order.
--- NOTE | 2017-01-09 12:57 | [facility] Operative Report ---
Operative Report Operative Date Jan 09, 2017. Pre-Operative Diagnosis Atrial fibrillation with fast and slow ventricular response Post-Operative Diagnosis same Procedure(s) Performed Left subclavian venogram Single-chamber pacemaker implantation Surgeon Dr. Valladares Bark Grinder Surgeon(s) none Estimated Blood Loss 20 cc Findings Good lead position, excellent measurements Specimens None Anesthesia local with sedation Complication(s) None Disposition PCU Description of Procedure After obtaining informed consent for the procedure, the patient was brought to the laboratory and prepped and draped in the standard sterile manner. The left prepectoral region was anesthetized with 1% lidocaine local anesthetic and left axillary venipuncture was attempted by percutaneous technique however was not initially successful. Dye was injected via the left arm IV site to opacify the left subclavian vein, which was positioned in a more caudal direction than is typical. Once the location of the vein was identified, left axillary venipuncture was performed by percutaneous technique and a guidewire placed through the left subclavian vein into the superior vena cava. The area was further infiltrated with 1% lidocaine local anesthetic and a 5 cm incision was made parallel to the left clavicle and 2 cm below it and carried down to the anterior pectoralis fascia. A pacemaker pocket was formed by blunt dissection anterior to the pectoralis fascia and a bacitracin-soaked sponge (50,000 units in 50 cc normal saline solution) was placed in the pocket. An 8 Italian Medtronic lead introducer was placed over the guidewire into the left subclavian vein, the dilator and guidewire were removed and a bipolar active fixation steroid tipped ventricular lead was advanced through the introducer into the superior vena cava. A guidewire was placed through the introducer and the introducer was stripped from the lead and guidewire. Using a curved stylette the ventricular lead was advanced through the right ventricular outflow tract into the pulmonary artery and then using a straight stylette was positioned in the right ventricular apex. The screw was extended fixing the lead in position. Pacing and sensing thresholds were evaluated in bipolar configuration and are recorded on the implant data sheet. Once the lead was in position it was attached to the anterior pectoralis fascia using 2 sutures of 2-0 silk around the lead collar. The bacitracin-soaked sponge was removed from the pocket, hemostasis was obtained, the pacemaker was attached to the lead and placed in the pocket with the lead coiled beneath it. The incision was closed with a running double subcutaneous closure of 3-0 V- Lock absorbable suture, followed by running subcuticular skin closure of 4-0 V- Lock absorbable suture. Bacitracin ointment was placed on the incision and a pressure dressing applied. I attest to the content of the Intraoperative Record and any orders documented therein. Any exceptions are noted below.
[2017-01-09] MEDS ORDERED: ACETAMINOPHEN 325 MG TAB PO PRN (13:00)
[2017-01-09] MEDS ORDERED: KETOROLAC TROMETHAMINE 10 MG TAB PO PRN (13:00)
--- NOTE | 2017-01-09 13:05 | Procedure Note ---
Post-Mod Sedation Assessment General Date of Moderate Sedation Jan 09, 2017. Vital Signs: Vital Signs Past 12 Hours Date Time Temp Pulse Resp B/P (MAP) Pulse Ox O2 Delivery O2 Flow Rate FiO2 01/09/17 11:28 36.5 89 19 124/69 92 Room Air 01/09/17 11:04 36.5 19 124/69 (87) 92 Room Air 01/09/17 08:00 Room Air 01/09/17 07:24 36.4 86 20 137/76 (96) 91 Room Air 01/09/17 05:11 36.4 58 22 123/72 93 Room Air 01/09/17 04:00 93 Room Air 01/09/17 03:14 36.4 58 22 123/72 (89) 93 Room Air Review - Discharge Criteria Vital Signs Stable: Yes Alert/Oriented/Conversant: Yes Returned to Baseline Mental St: Yes Nausea Absent/Minimal: Yes Pain/Discomfort/Absent/Minimal: Yes Normal/Baseline Respirations: Yes Active Bleeding?: No
[2017-01-09] MEDS ORDERED: WARFARIN SOD 2 MG TAB PO ONE (16:00)
[2017-01-09] MEDS ORDERED: WARFARIN SOD 4 MG TAB PO ONE (16:00)
[2017-01-09] MEDS: CEFAZOLIN IV 2,000 MG in DEXTROSE 5% 50ML 50 ML IV SCH (19:46)
[2017-01-10 03:05] VITALS: BP 133/81; PULSE 75; TEMP 36.7; O2SAT 93
[2017-01-10] MEDS: CEFAZOLIN IV 2,000 MG in DEXTROSE 5% 50ML 50 ML IV SCH ×2 (03:29→11:05)
[2017-01-10] MEDS ORDERED: CEFAZOLIN SOD 1000MG/55 ML D5W IV SCH (06:00)
[2017-01-10] MEDS ORDERED: CEFAZOLIN IV 2,000 MG in DEXTROSE 5% 50ML 50 ML IV SCH (06:00)
[2017-01-10 06:58] LABS: BUN/CREATININE RATIO 22.9 (10-20); POTASSIUM 3.4 mmol/L (3.5-5.1)
--- NOTE | 2017-01-10 07:24 | DIAGNOSTIC IMAGING REPORT ---
CHEST 2 VIEWS ROUTINE CLINICAL HISTORY: Pacemaker insertion. COMPARISON STUDY: Chest radiograph January 06, 2017. FINDINGS: There has been interval placement of a single lead left subclavian pacemaker. Lead tip projects over the right ventricular apex. There is no pneumothorax or evidence of pulmonary edema. Linear left basilar opacity is suggestive of atelectasis. Cardiomegaly is unchanged. IMPRESSION: No pneumothorax following placement of a left subclavian pacemaker. Electronically signed by: Hamzah Gregory M.D. 01/10/2017 7:22 AM Dictated Date/Time: 01/10/2017 7:19 AM
[2017-01-10 08:00] VITALS: O2SAT 93
[2017-01-10] MEDS: COMBIGAN~ORDER AWAITING ACTION SCH (08:00)
[2017-01-10 08:08] VITALS: BP 127/76; PULSE 74; TEMP 36.9; O2SAT 96
[2017-01-10] MEDS: TRAMADOL/ACETAMINOPHEN 37.5/325MG TAB PO PRN (08:27)
[2017-01-10] MEDS: CEROVITE ADV FORMULA TAB PO SCH (08:28)
[2017-01-10] MEDS: POLYETHYLENE (MIRALAX) 17 GM PACK PO SCH (08:28)
[2017-01-10] MEDS: SENNA 8.6 MG TAB PO SCH (08:28)
[2017-01-10] MEDS: TORSEMIDE 20 MG TAB PO SCH (08:29)
[2017-01-10] MEDS: TAMSULOSIN HCL 0.4 MG CAP PO SCH (08:29)
[2017-01-10] MEDS: FINASTERIDE 5 MG TAB PO SCH (08:29)
[2017-01-10] MEDS: DORZOLAMIDE/TIMOLOL 22.3/6.8MG/ML 10 ML BTL OPB SCH (08:31)
[2017-01-10] MEDS ORDERED: POTASSIUM CHLORIDE 10 MEQ TABCR PO ONE (08:45)
--- NOTE | 2017-01-10 09:52 | Cardiology Follow-Up ---
Subjective Date of Service: Jan 10, 2017. Pt evaluation today including: conversation w/ patient, conversation w/ family , physical exam, lab review, review of studies, review of inpatient medication list, conversation w/ attending History of Present Illness This is a very pleasant 89-year-old gentleman, who lives by himself, and has a history of permanent atrial fibrillation. He may have a history of coronary artery disease and has an ejection fraction of 45-50% by echocardiography in October 2016. He has pulmonary hypertension with moderate right ventricular systolic dysfunction. He presented with a feeling of intermittent dizziness and a "sinking" sensation, he was noted to have a heart rate in the 50s by home nursing. Normally his heart rate is in the 70s therefore he was sent to the emergency room. At home he takes atenolol 25 mg daily and warfarin. Although this is a low dose of atenolol was held, and even several days later he was having pauses as long as 3.2 seconds at night and heart rates in the 40s. With walking his heart rate was often around 120, although he was not aware of the rapid heart rate. With his other cardiac conditions and for heart rate control he should be on beta blockade, and therefore he requires a pacemaker for bradycardia support. His INR had nearly normalized. I therefore implanted a single-chamber pacemaker on 01/09/2017 without apparent difficulty. Today he feels quite well, he has minor incisional discomfort but no other complaints. He tells me that he feels better than when he came in. Social History Smoking Status: Former Smoker History of Alcohol Use: Yes (BEER, 2 A DAY) Review of Systems Respiratory: No cough, No sputum, No shortness of breath, No dyspnea on exertion Cardiac: + problem reported ("sinking" sensation associated with bradycardia), No chest pain, No orthopnea, No PND, No edema Only minor incisional discomfort Objective Vital Signs Past 12 Hours Date Time Temp Pulse Resp B/P (MAP) Pulse Ox O2 Delivery O2 Flow Rate FiO2 01/10/17 08:08 36.9 74 16 127/76 (93) 96 01/10/17 04:00 Room Air 01/10/17 03:05 36.7 75 18 133/81 (98) 93 Room Air 01/10/17 00:00 Room Air 01/09/17 23:45 36.7 69 18 119/81 (94) 91 Room Air Last Recorded Weight-Kilograms: 78.700 Physical Exam Constitutional: General Apperance: heathly-appearing Level of Distress: NAD Lungs: Respiratory effort: no dyspnea, good air movement Auscultation: breath sounds normal, no wheezing Cardiovascular: Heart Auscultation: no rubs, no gallops, I/ WSM, irregular rate rhythm Peripheral Pulses: Bruits: none appreciated Extremities: pertinent finding (signs of chronic venous stasis) The incision is clean and dry, there is no bleeding or hematoma formation. There is the expected postoperative ecchymosis. Data Laboratory Results: Last 24 Hours Test 01/10/17 05:50 Sodium Level 136 mmol/L Potassium Level 3.4 mmol/L Chloride Level 103 mmol/L Carbon Dioxide Level 25 mmol/L Anion Gap 8.0 mmol/L Blood Urea Nitrogen 23 mg/dl Creatinine 1.00 mg/dl Est Creatinine Clear Calc Drug Dose 53.3 ml/min Estimated GFR () 77.0 Estimated GFR (Non- 66.4 BUN/Creatinine Ratio 22.9 Random Glucose 122 mg/dl Calcium Level 9.0 mg/dl Imaging: Chest x-ray shows good lead position and no pneumothorax EKG: Atrial fibrillation with occasional ventricular pacing appropriately Telemetry reviewed: Atrial fibrillation with normal pacemaker operation Pacemaker evaluation: Functioning well with excellent pacing and sensing characteristics. Pacing overnight about 25% of the time appropriately. Assessment and Plan POD#1: Doing well, site looks good, pacemaker measurements good, CXR shows good position without pneumothorax. Stable for discharge from my standpoint. Appointment scheduled for 01/12/2017 11:00 AM Thank you for allowing me to participate in his care.
--- NOTE | 2017-01-10 09:55 | Discharge Instructions ---
Discharge Instructions Date of Service Jan 10, 2017. Admission Reason for Admission: Bradycardia Discharge Discharge Diagnosis / Problem: Post pacemaker implantation Discharge Goals Goal(s): Improve disease control Activity Recommendations Activity Limitations: resume your previous activity . Instructions / Follow-Up Instructions / Follow-Up ACTIVITY RECOMMENDATIONS: * Do not raise affected arm over head for 2 weeks. SPECIAL CARE INSTRUCTIONS: * If bleeding occurs, apply direct pressure to area for 5 minutes. * Call your doctor if you have severe pain, fever, drainage or bleeding at site. * Keep dressing on and dry for 48 hours then remove. * Keep any scheduled doctor's appointment. * Implant Card - hand held device with website information given. SKIN IRRITATION: * You may experience some redness and/or swelling in the area where radiation was administered. If any skin irritation occurs, please contact your family physician. FOLLOW UP VISIT: Dr. Valladares 01/12/2017 11:00 Current Hospital Diet Patient's current hospital diet: AHA Diet (Heart Healthy) Discharge Diet Recommended Diet: N/A Pending Studies Studies pending at discharge: no Medical Emergencies . Who to Call and When: Medical Emergencies: If at any time you feel your situation is an emergency, please call 911 immediately. . Non-Emergent Contact Non-Emergency issues call your: Primary Care Provider . . "Provider Documentation" section prepared by Last Valladares. . VTE Core Measure Inpt VTE Proph given/why not?: Warfarin (Coumadin), T.E.D. Stockings, SCD's
--- NOTE | 2017-01-10 10:13 | Discharge Instructions ---
Discharge Instructions Date of Service Jan 10, 2017. Admission Reason for Admission: Bradycardia Discharge Discharge Diagnosis / Problem: Bradycardia Discharge Goals Goal(s): Decrease discomfort, Improve function, Increase independence, Improve disease control Activity Recommendations Activity Limitations: resume your previous activity Lifting Limitations: gradually increase as tolerated Exercise/Sports Limitations: rest today, gradually increase as tolerated May Resume Sexual Activity: when tolerated Shower/Bathe: no limitations (with assistance) Driving or Machine Use: DO NOT DRIVE . Instructions / Follow-Up Instructions / Follow-Up You were admitted to [facility] with slow heart beat (bradycardia) and underwent surgical implantation of a pacemaker by Dr. Christian on 01/09/17. Continue taking all medications as prescribed. Have blood work drawn on Monday, to check INR You may resume you normally scheduled Coumadin regimen of 2 mg tonight, 2 mg on 01/11/27, and then tomorrow take 1 mg 01/12/17, and thus forward. Follow up: -PCP within 1 week -Cardiology for nursing checkup as already scheduled this Current Hospital Diet Patient's current hospital diet: AHA Diet (Heart Healthy) Discharge Diet Recommended Diet: AHA Diet (Heart Healthy) Procedures Procedures Performed: 01/09/17: Pacemaker insertion Pending Studies Studies pending at discharge: no Medical Emergencies . Who to Call and When: Medical Emergencies: If at any time you feel your situation is an emergency, please call 911 immediately. . Non-Emergent Contact Non-Emergency issues call your: Primary Care Provider Call Non-Emergent contact if: you have a fever, temperature is above 100.5, your pain is not controlled, your pain is worsening, you have any medication questions chest pain, shortness of breath, abdominal pain, nausea, vomiting, diarrhea, constipation or if you have any other concerns with your health. . . "Provider Documentation" section prepared by Marley Carvalho. Attending Attestation: Pt seen/examined and discharge care plan d/w ROSETTA Carvalho. I agree with her discharge instructions as outlined. Jude Springer MD . Professor Of Law Recommendations Professor Of Law Recommendations: Instructions / Follow-Up ACTIVITY RECOMMENDATIONS: * Do not raise affected arm over head for 2 weeks. SPECIAL CARE INSTRUCTIONS: * If bleeding occurs, apply direct pressure to area for 5 minutes. * Call your doctor if you have severe pain, fever, drainage or bleeding at site. * Keep dressing on and dry for 48 hours then remove. * Keep any scheduled doctor's appointment. * Implant Card - hand held device with website information given. SKIN IRRITATION: * You may experience some redness and/or swelling in the area where radiation was administered. If any skin irritation occurs, please contact your family physician. VTE Core Measure Inpt VTE Proph given/why not?: Warfarin (Coumadin), T.E.D. Stockings, SCD's
--- NOTE | 2017-01-10 10:20 | CARDIOLOGY PROGRESS NOTE ---
DATE: 01/10/2017 DATE: 01/10/2017. SUBJECTIVE: Mr. Mojica is resting comfortably in the bedside chair without complaints of chest pain or dyspnea. His postoperative pain is well controlled. He is anxious for hospital discharge. OBJECTIVE: VITAL SIGNS: Blood pressure is 127/76 with a regular pulse of 74. Respiratory rate is 16. The patient is afebrile at 36.9 degrees Celsius. Saturations 96% on room air. NECK: Supple with full carotid upstrokes. There are no carotid bruits. Jugular venous pressure is flat at 90 degrees. There is no thyromegaly. CARDIOVASCULAR EXAMINATION: Reveals a regular irregular rhythm with distant heart sounds. A 1/6 apical holosystolic murmur is noted. Right-sided S3 is also present. LUNGS: Clear without rales, rhonchi, or wheeze. CHEST: Reveals a dry dressing in the left subclavicular region. ABDOMEN: Soft without bruits. EXTREMITIES: Reveal intact radial artery pulses bilaterally. 1+ pretibial edema is noted. LABORATORY DATA: Electrolytes note a sodium of 136, potassium 3.4, chloride 103, bicarbonate 25, BUN 23, creatinine 1.0, glucose 122. author's agent notes appropriate pacing. IMPRESSION AND PLAN: 1. Tachycardia/bradycardic syndrome -- Dr. Valladares placed a single chamber pacer yesterday for his significant bradycardia. His atenolol has been restarted and there have been no episodes of tachycardia since. Would resume Coumadin. 2. Chronic diastolic congestive heart failure -- compensated at this time. Left ventricular systolic function has normalized when compared to an echocardiogram performed back in October. 3. Presumed coronary artery disease -- patient demonstrating anteroapical ischemia on nuclear stress test in May 1998. 4. Cor pulmonale -- with dilatation of right-sided chambers and right ventricular dysfunction. Will need outpatient sleep study performed. 5. Severe pulmonary hypertension. 6. Hypertension. 7. Hypercholesterolemia.
[2017-01-10 11:47] VITALS: BP 90/63; PULSE 66; TEMP 36.5; O2SAT 94
[2017-01-10 12:00] VITALS: O2SAT 95
[2017-01-10] MEDS ORDERED: POTASSIUM CHLORIDE 20 MEQ TABCR PO SCH (13:00)
--- NOTE | 2017-01-10 15:05 | Discharge Summary ---
Discharge Summary Date of Service Jan 10, 2017. (Jojo Carvalho PA-C) Discharge Summary Admission Date: Jan 06, 2017 at 19:51 Discharge Date: Jan 10, 2017 Discharge Disposition: Home with services Principal Diagnosis: Symptomatic Bradycardia s/p Pacemaker insertion Problems/Secondary Diagnoses: (1) Atrial fibrillation Status: Chronic (2) CHF (congestive heart failure) Status: Chronic (3) Wound infection Status: Chronic (4) Cellulitis of right lower limb Status: Chronic (5) Diabetes mellitus Status: Chronic (6) Hyperlipidemia Status: Chronic (7) Hyperplasia of prostate Status: Chronic (8) Hypertension Status: Chronic (9) Lyme disease Status: Resolved (10) Reflux esophagitis Status: Chronic Surgical HX: R hip arthoplasty x 3 Cataract surgery on both eyes S/p single chamber pacemaker insertion on for symptomatic bradycardia Immunizations: Have You Had Influenza Vaccine: N/A History of Tetanus Vaccine?: No History of Pneumococcal: Yes History of Hepatitis B Vaccine: No Procedures: Pacemaker insertion 01/09/17 CHEST ONE VIEW PORTABLE 01/06/17 CLINICAL HISTORY: Shortness of breath. Possible failure COMPARISON STUDY: 10/25/2016 FINDINGS: The chest has an emphysematous configuration. The heart remains enlarged. There is no focal pulmonary consolidation. There is minor basilar atelectasis/scarring.[ There are no significant pleural effusions. IMPRESSION: Cardiomegaly. Emphysema. No evidence of focal pulmonary consolidation. No evidence of overt failure Electronically signed by: Valerio Ochoa M.D. 01/06/2017 5:45 PM Dictated Date/Time: 01/06/2017 5:44 PM The status of this report is Signed. [~ rep ct add3]] CHEST 2 VIEWS ROUTINE CLINICAL HISTORY: Pacemaker insertion. COMPARISON STUDY: Chest radiograph January 06, 2017. FINDINGS: There has been interval placement of a single lead left subclavian pacemaker. Lead tip projects over the right ventricular apex. There is no pneumothorax or evidence of pulmonary edema. Linear left basilar opacity is suggestive of atelectasis. Cardiomegaly is unchanged. IMPRESSION: No pneumothorax following placement of a left subclavian pacemaker. Electronically signed by: Hamzah Gregory M.D. 01/10/2017 7:22 AM Dictated Date/Time: 01/10/2017 7:19 AM The status of this report is Signed. Consultations: Cardiology (Jojo Carvalho PA-C) Problems/Secondary Diagnoses: pulmonary HTN mild aortic stenosis cor pulmonale tachy-barb syndrome Procedures: echocardiogram: * -- Conclusions -- * Left ventricular systolic function is normal. * No regional wall motion abnormalities noted. * Ejection Fraction = 55-60%. * Dilated right sided chambers. * Right ventricular dysfunction. * Mild valvular aortic stenosis. * There is mild to moderate mitral regurgitation. * There is mild to moderate tricuspid regurgitation. * Evidence of severe pulmonary hypertension. (Jude Springer MD) Medication Reconciliation Continued Medications: Atenolol (Tenormin) 25 Mg Tab 25 MG PO DAILY Brimonidine Tartrate-Timolol M (Combigan) 1 Robyn Robyn 1 DROP OPB BID Cholestyramine (Cholestyramine) 4 Gm Pow 4 MG PO BID Dorzolamide Hcl-Timolol Maleat (Cosopt Oph) 1 Robyn Robyn 1 DROPS OPB BID Finasteride (Proscar) 5 Mg Tab 5 MG PO DAILY Metolazone (Metolazone) 5 Mg Tab 1 TAB PO UD, #5 1 TAB FOR 2 DAYS WHEN NEEDED Ocuvite Preservision (Ocuvite Preservision) 1 Tab Tab 1 TAB PO BID, TAB Potassium Chloride (Potassium Chloride ER) 20 Meq Tab 0.5 TAB PO QAM Tamsulosin HCl (Tamsulosin HCl) 0.4 Mg Cap 0.4 MG PO DAILY Torsemide (Torsemide) 20 Mg Tab 2 TAB PO QAM Tramadol-Acetaminophen (Ultracet) 1 Tab Tab 2 TAB PO TID PRN for Pain Warfarin Sod (Jantoven) 2 Mg Tab 2 TAB PO DAILY Discharge Exam The patient was seen and examined this morning. Pts daughter in law was present at bedside. The patient reports feeling significantly better today in comparison to yesterday. He reports even feeling like he has more energy. All his questions and concerns were addressed. Pt has home health services planned to come into his house tomorrow and Monday this week who will check his INR. He denies any chest pain, shortness of breath, abdominal pain, nausea, vomiting or diarrhea. Review of Systems: Constitutional: No fever, No chills, No sweats, No weight loss, No weakness , No fatigue Eyes: No redness, No diplopia ENT: No sore throat, No tinnitus Respiratory: No shortness of breath, No dyspnea on exertion Cardiovascular: No chest pain, No edema Abdomen: No pain, No nausea, No vomiting, No diarrhea, No constipation Musculoskeletal: No joint pain, No swelling, No calf pain Genitourinary - Male: No hematuria, No dysuria Neurologic: No numbness/tingling Endocrine: No fatigue Integumentary: No rash, No itch Physical Exam: General Appearance: WD/WN, no apparent distress Eyes: PERRL, EOMI, + pertinent finding (Darkened glasses lens over the right eye) ENT: hearing grossly normal, pharynx normal Neck: supple, no JVD Respiratory/Chest: chest non-tender, lungs clear, no respiratory distress, no accessory muscle use Cardiovascular: regular rate, rhythm (paced), normal peripheral pulses, + systolic murmur (Grade I/ systolic murmur) Abdomen / GI: normal bowel sounds, non tender, soft Extremities: no calf tenderness, no pedal edema, + pertinent finding (+ chronic venous stasis changes bilaterally) Neurologic/Psychiatric: alert, normal mood/affect, oriented x 3 Skin: normal color, warm/dry (Jojo Carvalho, JUSTEN) Hospital Course H&P History of Present Illness Source: patient This is a 89 with PMHx of chronic CHF, with an EF= 45-50%, pulmonary hypertension, chronic atrial fibrillation on anticoagulation, anemia, atrial flutter, hyperlipidemia, hypertension, Lyme's disease, GERD, osteoarthritis, macular degeneration, 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 The patient is present here with his [id number] and son who support his history. This morning home health nursing presented to his home for regularly scheduled checkup. While there the nurse noted that he was bradycardic in the low 50s, where he normally has a heart rate in 70s. When he expressed lightheadedness she encouraged him to go to the ER. He has also taken metolazone 5 mg on 01/04 and 01/05 for a ~5lb weight gain. His dry weight is 180- 185 lbs, and reports weighing 182 lbs at home today. Of note the patient was seen by Dr. Moore recently and torsemide was increased from 20 mg daily to 40 mg daily. Pt denies feeling dizzy, headache, chest pain, palpitations or flutter. He denies acutely feeling short of breath, and does not wear oxygen at baseline. He denies falls, but does frequently bump into things and his skin tears easily, he uses a crutch due to chronic right hip pain and s/p 3 R hip arthroplasties. The patient lives at home alone, but has home health nursing coming in twice weekly. Here in the ER the patient was administered Lasix 20 mg IV daily for elevated BNP= 1276, K was decrease to 3.1, A CXR was obtained and showed no acute signs of overt failure. EKG was reviewed and show atrial fibrillation with bradycardia HR equal to 56 bpm, also with T-wave inversions in V2-V3, AVF, AV3. Physical Exam Vital Signs Date Time Temp Pulse Resp B/P (MAP) Pulse Ox O2 Delivery O2 Flow Rate FiO2 01/06/17 18:43 97 Room Air 01/06/17 18:41 44 20 141/63 96 Room Air 01/06/17 18:33 46 01/06/17 18:04 96 Room Air 01/06/17 16:55 36.3 64 20 125/69 94 Room Air General: awake, alert, no apparent distress Head: Normocephalic, atraumatic ENT: PERRL, EOMI, no pharyngeal exudate, mucous membranes moist, + wearing darkened glasses over the right eye Chest: Clear to auscultation with slightly diminished breath sounds at bases, on room air, no adventitious breath sounds Cardiac: Irregularly irregular, bradycardic, + systolic murmur grade I/, no JVD, normal peripheral pulses, good capillary refill Abdominal: NABS x 4 quadrants, + distended, +dull on percussion, nontender to palpation, no rebound, guarding or tenderness Extremities: Normal inspection, no peripheral edema or erythema, calfs nontender to palpation Psych: Normal mood and affect Neuro: AAO x 3, strength intact bilaterally and related 5/5, no motor deficits, speech is clear, no peripheral sensory deficits Hospital Course: This is a 89 with PMHx of chronic diastolic CHF with a preserved EF since repeat ECHO completed this admission, pulmonary hypertension, chronic atrial fibrillation on anticoagulation, atrial flutter, hyperlipidemia, hypertension, anemia, Lyme's disease, GERD, osteoarthritis, macular degeneration, 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 Christian on 01/09/17. Symptomatic bradycardia: - Admit to telemetry for cardiac monitoring - Trended cardiac enzymes- negative - Atenolol 25 mg daily restarted after pacemaker insertion and there were no bouts of rebound tachycardia. - Dr. Rouse and Dr. Christian saw the patient -- Single-chambered pacemaker implantation on 01/09 for bradycardia Hypokalemia, 3.1 on admission- RESOLVED: Replaced w/ PO + IV potassium supplement, continue KCL 20 mEq daily Chronic diastolic CHF- compensated, pulmonary hypertension, HTN- STABLE: - BNP of 1276 on admission- treated w/ IV Lasix 20 mg x1 - ECHO * Left ventricular systolic function is normal. * No regional wall motion abnormalities noted. * Ejection Fraction = 55-60%. * Dilated right sided chambers. * Right ventricular dysfunction. * Mild valvular aortic stenosis. * There is mild to moderate mitral regurgitation. * There is mild to moderate tricuspid regurgitation. * Evidence of severe pulmonary hypertension. - Restarted Atenolol prior to discharge - Torsemide 20 mg daily, and KCL supplement h/o atrial flutter and fibrillation: On chronic Coumadin therapy- follow PT/INR , Atenolol - INR followed by home health services, they will check INR on Monday per the patient. Osteoarthritis: Uses a crutch to assist with ambulation, PT/OT evals completed. 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 Total Time Spent: Greater than 30 minutes This includes examination of the patient, discharge planning, medication reconciliation, and communication with other providers. (Jojo Carvalho PA-C) Attending Attestation: Pt seen/examined, chart reviewed, and discharge care plan d/w ROSETTA Carvalho. I agree with the muro components of her discharge summary. 89yo male with h/o chronic diastolic CHF, a. fib, BPH, and chronic coumadin use for a. fib who presented after his home health nurse became concerned that his HR was in the 50s. He also had been having issues with fluid retention and need for increased diuretic dose. Following admission his beta flynn was held and he developed significant a. fib with RVR. He was also treated for acute/chronic CHF. Dr. Last Valladares, electrophysiology, was consulted who felt that he should have permanent pacemaker placement for tachy-barb syndrome. The patient ultimately underwent pacemaker placement on 01/09/17. Post-op he did well with no evidence of complications. His pacemaker appeared to be functioning well. Coumadin was resumed post-insertion. Discharge exam: gen - nad, thin neck - no JVD chest - pacemaker covered with clean dressing heart - 2/6 systolic murmur RUSB, RRR, s1, s2 lungs - CTA b/l abd - soft, NT ext - trace edema skin - stasis changes b/l legs The patient will see Dr. Valladares's office within 48 hours of discharge as well as his PCP within 1 week. Jude Springer MD (Jude Springer MD) Discharge Instructions Please refer to the electronic Patient Visit Report (Discharge Instructions) for additional information. (Jojo Carvalho, JUSTEN) Follow-Up Follow up with your Primary Care Provider within 1 week. Follow up with cardiology nursing on as already scheduled, cardiology within 1-2 weeks. (Jojo Carvalho PA-C) Additional Copies To Ramin Moore M.D.; Last Valladares M.D.
--- NOTE | 2017-01-11 07:07 | EDITING REQUIRED CODING QUERY ---
CONGESTIVE HEART FAILURE To promote full compliance with coding requirements relating to patient care, physician participation is requested in all cases of medical biller/coder uncertainty. Please assist us with the following questions. CHF was documented differently throughout the chart by different providers. Please clarify below which type of heart failure the patient had during this visit. Thank you for your help! SYSTOLIC HEART FAILURE ( ) Acute ( ) Chronic ( ) Acute on Chronic ( ) Unknown DIASTOLIC HEART FAILURE ( ) Acute ( ) Chronic ( x ) Acute on Chronic ( ) Unknown COMBINED SYSTOLIC AND DIASTOLIC HEART FAILURE ( ) Acute ( ) Chronic ( ) Acute on Chronic ( ) Unknown Was the CHF Present On Admission? Please check the appropriate box: ( ) Present on Admission ( ) Not Present On Admission (x ) Clinically undetermined Thank you! Stefanie Nuñez
== END 2017-01-10 13:26 | disposition home health service (06) | DRG 242 ==
LOC: C.EDB 16:48 → C.2T 19:51 → ENRESERV 20:02
PROVIDERS: ADMIT Family Medicine; ATTEND Internal Medicine
PROC: 02HK3JZ Insertion of Pacemaker Lead into Right Ventricle, Percutaneous Approach (ICD-10-PCS; principal; 2017-01-09 12:00)
PROC: 0JH634Z Insertion of Pacemaker, Single Chamber into Chest Subcutaneous Tissue and Fascia, Percutaneous Approach (ICD-10-PCS; principal; 2017-01-09 12:00)
DX: I49.5 Sick sinus syndrome (principal); I50.33 Acute on chronic diastolic (congestive) heart failure; I48.92 Unspecified atrial flutter; I11.0 Hypertensive heart disease with heart failure; I27.2 Other secondary pulmonary hypertension; I27.81 Cor pulmonale (chronic); I48.2 Chronic atrial fibrillation; E11.9 Type 2 diabetes mellitus without complications; E78.5 Hyperlipidemia, unspecified; K21.9 Gastro-esophageal reflux disease without esophagitis; E87.6 Hypokalemia; D64.9 Anemia, unspecified; N40.0 Benign prostatic hyperplasia without lower urinary tract symptoms; M19.90 Unspecified osteoarthritis, unspecified site; G47.33 Obstructive sleep apnea (adult) (pediatric); Z66 Do not resuscitate; Z79.01 Long term (current) use of anticoagulants; Z79.899 Other long term (current) drug therapy; Z87.891 Personal history of nicotine dependence

== ENCOUNTER → 2017-02-22 | Outpatient (CLI) | payer OTHER ==
[~2017-02-22] MED LIST changes: -BRIN1SUS OP; -CEPH500C2 PO; +CHOL4POW4 PO; +DORZ1SOL6 OPB; -LSN5 PO; -WARF2TAB PO; +WARF2TAB8 PO; +ZRX5 PO
--- NOTE | 2017-02-22 16:10 | MAMMOGRAPHY REPORT ---
MALE BILATERAL DIGITAL DIAGNOSTIC MAMMOGRAM TOMOSYNTHESIS WITH CAD AND TARGETED BILATERAL ULTRASOUND: 02/22/2017 CLINICAL HISTORY: 89-year-old male presents with a tender palpable lump in the left breast which he r eports has been present for the past month and a half. No skin erythema or nipple discharge. TECHNIQUE: Breast tomosynthesis in addition to standard 2D mammography was performed. Current study was also evaluated with a Computer Aided Detection (CAD) system. COMPARISON: No prior exams were available for comparison. BREAST COMPOSITION: The breast parenchyma is nearly entirely fat. FINDINGS: There is flame-shaped glandular tissue in the retroareolar left breast, to a lesser degree the retroareolar right breast. A tiny, 3.1 x 2.4 mm mottled mass in the superficial lower inner quad rant of the right breast, for which further evaluation with ultrasound was performed. No spiculated or irregular mass, architectural distortion or cluster of microcalcifications is seen bilaterally. Targeted ultrasound was performed in the periareolar and retroareolar aspect of each breast, and also throughout the right lower inner quadrant to assess for the tiny mammographic mass. There is a hypo echoic amount of glandular tissue in the left periareolar and retroareolar breast, and a similar smal ler amount of glandular tissue in the right retroareolar breast. No evidence of a suspicious solid o r cystic mass. Additional sonographic evaluation performed in the lower inner quadrant of the right breast demonstrates a subtle echogenic lesion in the 3:00 axis, 2 cm from the nipple, subdermal in lo cation, measuring 3.6 mm. This could represent a small amount of benign fat necrosis or a benign lip marylou. IMPRESSION: ACR BI-RADS CATEGORY 2: BENIGN, TARGETED ULTRASOUND ACR BI-RADS CATEGORY 2: BENIGN 1. There is left greater than right gynecomastia, likely explaining the patient's left-sided symptom s. No mammographic or targeted sonographic evidence of malignancy. Clinical follow-up is recommende d as to possible underlying cause. 2. Incidentally identified 3.1 x 2.4 mm mammographic mass in the right lower inner quadrant is thoug ht to correlate with a benign lipoma versus fat necrosis on ultrasound. These results and recommendations were discussed with the patient and his son at the time of the exam . Approximately 10% of breast cancers are not detected with mammography. A negative mammographic report should not delay biopsy if a clinically suggestive mass is present. Dee Pedroza M.D. ay/:02/22/2017 13:33:42 Manager Balance: Lupe PERALTA)(Genna), [facility] letter sent: Normal 1/2 BI-RADS Code: ACR BI-RADS Category 2: Benign Ultrasound BI-RADS: ACR BI-RADS Category 2: Benign
== END | disposition home or self-care (01) ==
LOC: C.MAMM 12:58
PROVIDERS: ATTEND Internal Medicine
DX: N64.4 Mastodynia (principal)

== ENCOUNTER → 2017-03-22 | Outpatient (CLI) | payer OTHER ==
[2017-03-22 13:54] LABS: HEMATOCRIT 39.1 % (42-52); MEAN CELL VOLUME 92.7 fL (80-100); MEAN CORPUSCULAR HEMOGLOBIN 31.5 pg (25-34); MEAN PLATELET VOLUME 8.8 fL (7.4-10.4); PLATELET COUNT 169 K/uL (130-400); RED BLOOD COUNT 4.22 M/uL (4.7-6.1)
[2017-03-22 13:58] LABS: BASO % 0.9 %; BASO ABS # 0.05 K/uL (0-0.2); COMPLETE YES; EOS % 3.2 %; LYMPH % 20.4 %; LYMPH ABS # 1.16 K/uL (1.2-3.4); NEUT % 61.5 %
[2017-03-22 17:32] LABS: ALT/SGPT 19 U/L (12-78); AST/SGOT 20 U/L (15-37); BLOOD UREA NITROGEN 27 mg/dl (7-18); BUN/CREATININE RATIO 22.7 (10-20); CARBON DIOXIDE 28 mmol/L (21-32); CHLORIDE 100 mmol/L (98-107); GLUCOSE 109 mg/dl (70-99); POTASSIUM 3.6 mmol/L (3.5-5.1); SODIUM 135 mmol/L (136-145)
[2017-03-22 17:42] LABS: ALB/GLOB RATIO 0.8 (0.9-2); ALKALINE PHOSPHATASE 92 U/L (45-117)
== END ==
LOC: C.LABBC 12:23
PROVIDERS: ATTEND Internal Medicine
DX: I25.10 Atherosclerotic heart disease of native coronary artery without angina pectoris (principal); E11.9 Type 2 diabetes mellitus without complications; G47.33 Obstructive sleep apnea (adult) (pediatric); I48.2 Chronic atrial fibrillation; I51.9 Heart disease, unspecified; Z79.01 Long term (current) use of anticoagulants

== ENCOUNTER 2017-05-30 17:54 | Emergency (ER) | payer OTHER ==
[~2017-05-30] VITALS: Ht 180.3 cm; Wt 79.5 kg
[2017-05-30 17:58] VITALS: TEMP 36.7; Ht 180.3 cm; Wt 79.5 kg
[2017-05-30] MEDS ORDERED: METOCLOPRAMIDE HCL INJ 5 MG/ML 2 ML VIAL IV STA (18:11)
--- NOTE | 2017-05-30 18:13 | EMERGENCY ROOM VISIT NOTE ---
History Report prepared by Laevll: Louisa Tillman Under the Supervision of: Dr. Rusty Barcenas M.D. First contact with patient: 18:01 Chief Complaint: CONSTIPATION Stated Complaint: CONSTIPATION Nursing Triage Summary: pt reports chronic constipation has taken stool softners and an enama daily X 2 days reports no help with bowel. reports "feeling very full" History of Present Illness The patient is an 89 year old white male with a past medical history of atrial fibrillation, DM, HTN and CHF who presents to the ED with a cc of persistent constipation beginning 1 week PHLEBOTOMY TECH. Positive abdominal distension. Negative fevers, nausea, vomiting, urinary symptoms, recent medication changes. He has tried taking stool softeners and has used enemas with minimal relief. He states he has had small BM's, but nothing more than "small amounts of stool". He is still passing gas. He denies any history of abdominal surgeries. The patient is on Coumadin for his history of atrial fibrillation. His most recent INR was 8.3 according to family. Source of History: patient, family Onset: 1 week PHLEBOTOMY TECH Position: abdomen Timing: other (persistent) Modifying Factors (Relieving): other (enemas, stool softeners) Associated Symptoms: No fevers, No nausea, No vomiting, No urinary symptoms Review of Systems See HPI for pertinent positives and negatives. A total of ten systems were reviewed and were otherwise negative. Past Medical & Surgical Medical Problems: (1) Atrial fibrillation (2) Atrial flutter (3) Bradycardia (4) Cellulitis of right leg (5) Cellulitis of right lower limb (6) CHF (congestive heart failure) (7) Diabetes mellitus (8) Hyperlipidemia (9) Hyperplasia of prostate (10) Hypertension (11) Lyme disease (12) Reflux esophagitis (13) Wound infection Family History FH: stroke FHx: cancer Social History Smoking Status: Never Smoker Alcohol Use: none Drug Use: none Marital Status: Housing Status: lives alone Occupation Status: retired Current/Historical Medications Scheduled Atenolol (Tenormin), 25 MG PO DAILY Brimonidine Tartrate-Timolol M (Combigan), 1 DROP OPB BID Cholestyramine (Cholestyramine), 4 MG PO BID Dorzolamide Hcl-Timolol Maleat (Cosopt Oph), 1 DROPS OPB BID Finasteride (Proscar), 5 MG PO DAILY Metolazone (Metolazone), 1 TAB PO UD Ocuvite Preservision (Ocuvite Preservision), 1 TAB PO BID Potassium Chloride (Potassium Chloride ER), 0.5 TAB PO QAM Tamsulosin HCl (Tamsulosin HCl), 0.4 MG PO DAILY Torsemide (Torsemide), 2 TAB PO QAM Warfarin Sod (Jantoven), 2 TAB PO DAILY Scheduled PRN Tramadol-Acetaminophen (Ultracet), 2 TAB PO TID PRN for Pain Allergies Coded Allergies: Clobetasol (Unverified Allergy, Severe, ITCHING, 01/06/17) Physical Exam Vital Signs Date Time Temp Pulse Resp B/P (MAP) Pulse Ox O2 Delivery O2 Flow Rate FiO2 05/30/17 21:40 95 20 126/76 96 Room Air 05/30/17 19:49 60 05/30/17 19:45 64 18 121/80 92 Room Air 05/30/17 17:58 36.7 65 20 119/76 96 Room Air Physical Exam GENERAL: Awake, alert, well-appearing, NAD HENT: Normocephalic, atraumatic. EYES: Some degenerative changes of the right eye. Normal conjunctiva. Sclera non -icteric. NECK: Supple. No nuchal rigidity. FROM. RESPIRATORY: Bibasilar crackles, no rhonchi or wheezing CARDIAC: RRR, no MRG ABDOMEN: Soft, NTND, BS+ MSK: No chest wall TTP, +1 pretibial edema, some scattered bruising of upper extremities NEURO: GCS 15, CN 2-12 intact, moves all 4s on command SKIN: No rash or jaundice noted. Medical Decision & Procedures ER Provider Diagnostic Interpretation: Radiology results as stated below per my review and radiologist interpretation: PA CHEST RADIOGRAPH AND UPRIGHT AND SUPINE AP RADIOGRAPHS OF THE ABDOMEN CLINICAL HISTORY: Abdominal pain and bloating. COMPARISON STUDY: CT of the abdomen and pelvis November 17, 2008 and chest radiograph January 10, 2017. FINDINGS: Single lead left subclavian pacemaker is in place. Moderate cardiomegaly is unchanged. There is no evidence for pulmonary edema. Mild bibasilar opacities favor atelectasis. There is no free air. Bowel gas pattern is normal. Right hip arthroplasty with reconstruction is noted. IMPRESSION: 1. No free air or evidence of bowel obstruction. 2. Moderate cardiomegaly. No evidence for pulmonary edema. Electronically signed by: Hamzah Gregory M.D. 05/30/2017 8:03 PM Laboratory Results 05/30/17 18:42 Red Blood Count 4.20, Mean Corpuscular Volume 96.4, Mean Corpuscular Hemoglobin 31.9, Mean Corpuscular Hemoglobin Concent 33.1, Mean Platelet Volume 8.9, Neutrophils (%) (Auto) 64.7, Lymphocytes (%) (Auto) 19.2, Monocytes (%) (Auto) 13.2, Eosinophils (%) (Auto) 2.0, Basophils (%) (Auto) 0.7, Neutrophils # (Auto ) 3.81, Lymphocytes # (Auto) 1.13, Monocytes # (Auto) 0.78, Eosinophils # (Auto ) 0.12, Basophils # (Auto) 0.04 05/30/17 18:42 Test 05/30/17 18:42 White Blood Count 5.89 K/uL (4.8-10.8) Red Blood Count 4.20 M/uL (4.7-6.1) Hemoglobin 13.4 g/dL (14.0-18.0) Hematocrit 40.5 % (42-52) Mean Corpuscular Volume 96.4 fL (80-100) Mean Corpuscular Hemoglobin 31.9 pg (25-34) Mean Corpuscular Hemoglobin Concent 33.1 g/dl (32-36) Platelet Count 151 K/uL (130-400) Mean Platelet Volume 8.9 fL (7.4-10.4) Neutrophils (%) (Auto) 64.7 % Lymphocytes (%) (Auto) 19.2 % Monocytes (%) (Auto) 13.2 % Eosinophils (%) (Auto) 2.0 % Basophils (%) (Auto) 0.7 % Neutrophils # (Auto) 3.81 K/uL (1.4-6.5) Lymphocytes # (Auto) 1.13 K/uL (1.2-3.4) Monocytes # (Auto) 0.78 K/uL (0.11-0.59) Eosinophils # (Auto) 0.12 K/uL (0-0.5) Basophils # (Auto) 0.04 K/uL (0-0.2) RDW Standard Deviation 54.5 fL (36.4-46.3) RDW Coefficient of Variation 15.6 % (11.5-14.5) Immature Granulocyte % (Auto) 0.2 % Immature Granulocyte # (Auto) 0.01 K/uL (0.00-0.02) Prothrombin Time 24.6 SECONDS (9.0-12.0) Prothromb Time International Ratio 2.4 (0.9-1.1) Activated Partial Thromboplast Time 43.7 SECONDS (21.0-31.0) Partial Thromboplastin Ratio 1.7 Urine Color YELLOW Urine Appearance CLEAR (CLEAR) Urine pH 5.0 (4.5-7.5) Urine Specific [place] 1.017 (1.000-1.030) Urine Protein NEG (NEG) Urine Glucose (UA) NEG (NEG) Urine Ketones NEG (NEG) Urine Occult Blood NEG (NEG) Urine Nitrite NEG (NEG) Urine Bilirubin NEG (NEG) Urine Urobilinogen NEG (NEG) Urine Leukocyte Esterase NEG (NEG) Anion Gap 3.0 mmol/L (3-11) Est Creatinine Clear Calc Drug Dose 47.6 ml/min Estimated GFR () 67.1 Estimated GFR (Non- 57.9 BUN/Creatinine Ratio 17.0 (10-20) Calcium Level 9.0 mg/dl (8.5-10.1) Total Bilirubin 0.8 mg/dl (0.2-1) Direct Bilirubin 0.2 mg/dl (0-0.2) Aspartate Amino Transf (AST/SGOT) 23 U/L (15-37) Alanine Aminotransferase (ALT/SGPT) 26 U/L (12-78) Alkaline Phosphatase 116 U/L (45-117) Total Protein 8.6 gm/dl (6.4-8.2) Albumin 3.6 gm/dl (3.4-5.0) Lipase 135 U/L (73-393) Laboratory results reviewed by me Medications Administered Medications (Trade) Dose Ordered Sig/Celeste Route Start Time Stop Time Status Last Admin Dose Admin Metoclopramide HCl (Reglan Inj) 10 mg NOW STAT IV 05/30/17 18:11 05/30/17 18:13 DC 05/30/17 18:48 10 MG Lactulose (Chronulac Syrup) 30 gm NOW STAT PO 05/30/17 19:11 05/30/17 19:12 DC 05/30/17 19:56 30 GM Miscellaneous (Soap Suds Enema) 1 ea ONE STAT TN 05/30/17 20:15 05/30/17 20:17 DC 05/30/17 20:15 1 EA ECG Indication: abdominal pain Rate (beats per minute): 61 Rhythm: other (Ventricular paced) Findings: Q waves (Inferior, Laterally), T-wave inversion (in AV), other (Wide QRS, Prolonged QTC) Comparison ECG Date: Compared to EKG from 01/09/17, now exclusively ventricularly paced ED Course 1804: The patient was evaluated in room B11. A complete history and physical exam was performed. 1944: I reevaluated the patient. He states he still feels a little full and is currently receiving Lactulose. 2119: I reevaluated the patient. He had a bowel movement and feels ready to go home. I discussed his results and discharge instructions and he verbalized complete understanding and agreement. Medical Decision The patient is an 89 year old white male with a past medical history of atrial fibrillation on coumadin, DM, HTN, pacer, and CHF who presents to the ED with a cc of constipation beginning 1 week PHLEBOTOMY TECH. Triage Nursing notes reviewed. The patient's presentation and history were concerning for constipation. Differential diagnosis: Etiologies such as functional constipation, impaction, obstruction, volvulus, metabolic abnormality, infection, neurologic, as well as others were entertained. Patient was seen and evaluated the bedside. Patient is a very well-appearing 89 -year-old gentleman comes in with a chief complaint of constipation. Patient states he has not had a good bowel movement for approximately 2 days. Patient has tried suppositories as well as enemas without much relief. Patient did complain of some mild shortness of breath however he states that this is related to abdominal fullness and the inability to take a very large breath. Patient denies any infectious symptoms or chest pains. Patient does have some chronic lower extremity edema which is unchanged. Patient does have some abdominal fullness but no real abdominal pain. Abdomen mild distended but soft. Patient did have EKG, coags, blood work, and plain films completed. I doubt this is an obstruction given that he is still passing gas. Patient does not have any obstruction. Patient's blood work is fairly unremarkable. Patient 's white blood cell count normal. Patient does have a chronic anemia with a hemoglobin of 13. Patient LFTs and lipase fairly normal. Patient INR 2.4. Patient did have an EKG which showed that he is primarily ventricularly paced now. Patient did receive lactulose as well as a soapsuds enema. Patient did have a bowel movement. Patient was given instructions on how to help with his bowel movements. Patient was deemed suitable for outpatient follow-up and treatment. Patient was given strict follow-up, discharge, and return precautions. All questions were answered. Patient was deemed suitable for outpatient follow-up at this time. Patient agreed with the plan of care and was safely discharged home. Medication Reconcilliation Current Medication List: was personally reviewed by me Blood Pressure Screening Patient's blood pressure: Normal blood pressure Blood pressure disposition: Did not require urgent referral Impression Primary Impression: Constipation Scribe Attestation The scribe's documentation has been prepared under my direction and personally reviewed by me in its entirety. I confirm that the note above accurately reflects all work, treatment, procedures, and medical decision making performed by me. Departure Information Dispostion Home / Self-Care Referrals Ramin Moore M.D. (PCP) Patient Instructions Diet High Fiber Dc, ED Constipation, [facility] Additional Instructions Please return to the emergency department if you have worsening or recurrent symptoms not amenable to at-home treatment. Please call for a follow-up appointment with her primary care physician. Please take your medications as prescribed. If you have other concerns and/or complaints please feel free to also call your primary care physician's office or return the ED for further evaluation, management, and treatment. You were found to have an elevated blood pressure today (>120 sytolic or >90 diastolic). Per medicare guidelines, you need to follow up with this blood pressure screening with your Primary Care Physician (PCP). For a new PCP call [phone]. You may take tylenol 650 mg every 6 hours as needed for pain. He may increase fiber in her diet. Also please consider taking a docusate and senna which help soften the stool. Take your medications as prescribed. If taking an antibiotic consider taking a probiotic and/or eating yogurt, but at the least, please take with food as it can cause upset stomach. You have been examined and treated today on an emergency basis only. This is not a substitute for, or an effort to provide, complete comprehensive medical care. It is impossible to recognize and treat all injuries or illnesses in a single emergency department visit. It is therefore important that you follow up closely with [facility], your PCP, and/or your specialist(s). Call as soon as possible for an appointment. Thank you for your time and consideration. I look forward to speaking with you again soon. Please don't hesitate to call us if you have any questions. Problem Qualifiers Primary Impression: Constipation Constipation type: unspecified constipation type Qualified Codes: K59.00 - Constipation, unspecified
[2017-05-30 19:01] LABS: BASO % 0.7 %; BASO ABS # 0.04 K/uL (0-0.2); COMPLETE YES; HEMATOCRIT 40.5 % (42-52); IG% 0.2 %; LYMPH % 19.2 %; LYMPH ABS # 1.13 K/uL (1.2-3.4); MEAN CELL VOLUME 96.4 fL (80-100); MEAN CORPUSCULAR HEMOGLOBIN 31.9 pg (25-34); MEAN CORPUSCULAR HGB CONC 33.1 g/dl (32-36); MEAN PLATELET VOLUME 8.9 fL (7.4-10.4); MONO % 13.2 %; NEUT % 64.7 %; PLATELET COUNT 151 K/uL (130-400); WHITE BLOOD COUNT 5.89 K/uL (4.8-10.8)
[2017-05-30 19:04] LABS: URINE APPEARANCE CLEAR (CLEAR); URINE BILIRUBIN NEG (NEG); URINE COLOR YELLOW; URINE NITRITE NEG (NEG); URINE SPECIFIC GRAVITY 1.017 (1.000-1.030); UROBILINOGEN NEG (NEG); ZZUR CULT IF INDIC CLEAN CATCH NO
[2017-05-30] MEDS ORDERED: MILK AND MOLASSES ENEMA PR STA (19:11)
[2017-05-30] MEDS ORDERED: LACTULOSE SYRUP 20 GM/30 ML UDC PO STA (19:11)
[2017-05-30 19:13] LABS: MANUAL MICROSCOPIC REQUIRED? NO; REVIEW REQ? NO
[2017-05-30 19:24] LABS: INR 2.4 (0.9-1.1); PARTIAL THROMBOPLASTIN RATIO 1.7; PROTHROMBIN TIME (PATIENT) 24.6 SECONDS (9.0-12.0)
[2017-05-30 19:29] LABS: CREATININE 1.12 mg/dl (0.60-1.40); POTASSIUM 3.9 mmol/L (3.5-5.1)
--- NOTE | 2017-05-30 20:05 | DIAGNOSTIC IMAGING REPORT ---
PA CHEST RADIOGRAPH AND UPRIGHT AND SUPINE AP RADIOGRAPHS OF THE ABDOMEN CLINICAL HISTORY: Abdominal pain and bloating. COMPARISON STUDY: CT of the abdomen and pelvis November 17, 2008 and chest radiograph January 10, 2017. FINDINGS: Single lead left subclavian pacemaker is in place. Moderate cardiomegaly is unchanged. There is no evidence for pulmonary edema. Mild bibasilar opacities favor atelectasis. There is no free air. Bowel gas pattern is normal. Right hip arthroplasty with reconstruction is noted. IMPRESSION: 1. No free air or evidence of bowel obstruction. 2. Moderate cardiomegaly. No evidence for pulmonary edema. Electronically signed by: Hamzah Gregory M.D. 05/30/2017 8:03 PM Dictated Date/Time: 05/30/2017 8:01 PM
[2017-05-30] MEDS ORDERED: SOAP SUDS ENEMA PR STA (20:15)
[2017-05-30 21:40] VITALS: BP 126/76; PULSE 95; O2SAT 96
== END 2017-05-30 22:05 | disposition home or self-care (01) ==
LOC: C.EDB 17:55
DX: I48.91 Unspecified atrial fibrillation (principal); E11.9 Type 2 diabetes mellitus without complications; I11.0 Hypertensive heart disease with heart failure; I50.9 Heart failure, unspecified; Z79.01 Long term (current) use of anticoagulants; E78.5 Hyperlipidemia, unspecified; Z82.0 Family history of epilepsy and other diseases of the nervous system

== ENCOUNTER 2017-06-22 22:44 | Emergency (ER) | payer OTHER ==
[~2017-06-22] VITALS: Ht 182.9 cm; Wt 85.0 kg
[~2017-06-22 22:44] MED LIST changes: -DMD20 PO; +TORS20TA3 PO
[2017-06-22 22:47] VITALS: TEMP 36.5; Ht 182.9 cm; Wt 85.0 kg
--- NOTE | 2017-06-22 23:20 | EMERGENCY ROOM VISIT NOTE ---
History Report prepared by Lavell: Ismael Felix Under the Supervision of: Dr. Jose Ramirez M.D. First contact with patient: 23:13 Chief Complaint: SYNCOPE Stated Complaint: SYNCOPE AND INCONTINENCE Nursing Triage Summary: Pt states he was lying in bed when he felt lightheaded and dizzy "like I was going to pass out", episode occured around 2129. Pt states this is his third episode this week and he has been incontinent during each episode. History of Present Illness The patient is an 89 year old male who presents to the Emergency Room with complaints of a couple near-syncopal episodes over the past few days. The patient states that these episodes have occurred while he was in bed, and during the episodes, he lost control of his bladder. The patient notes that he has been short of breath with these episodes. He adds that he has a very mild headache. He adds that he has not been moving his bowels well recently, and was here for that a month ago. The patient denies any chest pain. He adds that his legs are a bit more swollen than normal. He is on Coumadin. The patient notes no recent falls. He was not drinking any alcohol recently. The patient notes no history of liver problems. Per the patient's family, the patient has been eating well recently. Source of History: patient, family Onset: Over past few days Position: other (global - near syncope) Symptom Intensity: multiple episodes Timing: other (episodes) Associated Symptoms: + headache, + SOB, + urinary symptoms (incontinent during episodes), No chest pain Note: Associated symptoms: Constipation. Increased leg swelling. No recent falls. Review of Systems See HPI for pertinent positives & negatives. A total of 10 systems reviewed and were otherwise negative. Past Medical & Surgical Medical Problems: (1) Atrial fibrillation (2) Atrial flutter (3) Bradycardia (4) Cellulitis of right leg (5) Cellulitis of right lower limb (6) CHF (congestive heart failure) (7) Diabetes mellitus (8) Hyperlipidemia (9) Hyperplasia of prostate (10) Hypertension (11) Lyme disease (12) Reflux esophagitis (13) Wound infection Family History FH: stroke FHx: cancer Social History Smoking Status: Former Smoker Alcohol Use: none Drug Use: none Marital Status: Housing Status: lives alone Occupation Status: retired Current/Historical Medications Scheduled Atenolol (Tenormin), 25 MG PO DAILY Brimonidine Tartrate-Timolol M (Combigan), 1 DROP OPB BID Cholestyramine (Cholestyramine), 4 MG PO BID Dorzolamide Hcl-Timolol Maleat (Cosopt Oph), 1 DROPS OPB BID Finasteride (Proscar), 5 MG PO DAILY Metolazone (Metolazone), 1 TAB PO UD Ocuvite Preservision (Ocuvite Preservision), 1 TAB PO BID Potassium Chloride (Potassium Chloride ER), 0.5 TAB PO QAM Tamsulosin HCl (Tamsulosin HCl), 0.4 MG PO DAILY Torsemide (Torsemide), 2 TAB PO QAM Warfarin Sod (Jantoven), 2 TAB PO DAILY Scheduled PRN Tramadol-Acetaminophen (Ultracet), 2 TAB PO TID PRN for Pain Allergies Coded Allergies: Clobetasol (Unverified Allergy, Severe, ITCHING, 01/06/17) Physical Exam Vital Signs Date Time Temp Pulse Resp B/P (MAP) Pulse Ox O2 Delivery O2 Flow Rate FiO2 06/23/17 01:10 60 20 114/76 94 06/23/17 00:00 67 18 120/74 96 Room Air 06/22/17 23:06 65 06/22/17 22:47 36.5 78 18 103/68 96 Room Air Physical Exam GENERAL: Patient is elderly appearing and in no acute distress. HEENT: No acute trauma, normocephalic atraumatic, mucous membranes moist, no nasal congestion, no scleral icterus. NECK: No stridor, no adenopathy, no meningismus, trachea is midline. LUNGS: No dyspnea. Clear to auscultation and equal bilaterally. No wheeze, no rhonchi. HEART: Regular rate and rhythm. No murmurs, rubs, gallops appreciated. ABDOMEN: Soft, nontender, bowel sounds positive, no masses appreciated, no peritonitis. BACK: No midline tenderness, no CVA tenderness EXTREMITIES: Normal motion all extremities. Pitting edema bilateral lower legs, severe venous stasis bilaterally lower legs. NEUROLOGIC: Alert and oriented, no acute motor or sensory deficits, no focal weakness, cranial nerves grossly intact. SKIN: Telangiectasias in upper chest. Medical Decision & Procedures ER Provider Diagnostic Interpretation: Radiology results and stated below per my review and radiologist interpretation: CT head: No priors. There is some artifact on this examination. No acute intracranial findings. Atrophy and chronic-appearing ischemic changes. Radiologist: Prashanth Thacker MD Chest: 1 view: No infiltrate, no effusion, normal cardiac border. Laboratory Results 06/22/17 23:10 Red Blood Count 4.06, Mean Corpuscular Volume 95.1, Mean Corpuscular Hemoglobin 31.8, Mean Corpuscular Hemoglobin Concent 33.4, Mean Platelet Volume 8.8, Neutrophils (%) (Auto) 64.2, Lymphocytes (%) (Auto) 19.5, Monocytes (%) (Auto) 13.2, Eosinophils (%) (Auto) 2.1, Basophils (%) (Auto) 0.8, Neutrophils # (Auto ) 3.07, Lymphocytes # (Auto) 0.93, Monocytes # (Auto) 0.63, Eosinophils # (Auto ) 0.10, Basophils # (Auto) 0.04 06/22/17 23:10 Test 06/22/17 23:10 06/23/17 00:05 White Blood Count 4.78 K/uL (4.8-10.8) Red Blood Count 4.06 M/uL (4.7-6.1) Hemoglobin 12.9 g/dL (14.0-18.0) Hematocrit 38.6 % (42-52) Mean Corpuscular Volume 95.1 fL (80-100) Mean Corpuscular Hemoglobin 31.8 pg (25-34) Mean Corpuscular Hemoglobin Concent 33.4 g/dl (32-36) Platelet Count 152 K/uL (130-400) Mean Platelet Volume 8.8 fL (7.4-10.4) Neutrophils (%) (Auto) 64.2 % Lymphocytes (%) (Auto) 19.5 % Monocytes (%) (Auto) 13.2 % Eosinophils (%) (Auto) 2.1 % Basophils (%) (Auto) 0.8 % Neutrophils # (Auto) 3.07 K/uL (1.4-6.5) Lymphocytes # (Auto) 0.93 K/uL (1.2-3.4) Monocytes # (Auto) 0.63 K/uL (0.11-0.59) Eosinophils # (Auto) 0.10 K/uL (0-0.5) Basophils # (Auto) 0.04 K/uL (0-0.2) RDW Standard Deviation 55.2 fL (36.4-46.3) RDW Coefficient of Variation 15.9 % (11.5-14.5) Immature Granulocyte % (Auto) 0.2 % Immature Granulocyte # (Auto) 0.01 K/uL (0.00-0.02) Prothrombin Time 27.4 SECONDS (9.0-12.0) Prothromb Time International Ratio 2.7 (0.9-1.1) Activated Partial Thromboplast Time 45.3 SECONDS (21.0-31.0) Partial Thromboplastin Ratio 1.7 Anion Gap 7.0 mmol/L (3-11) Est Creatinine Clear Calc Drug Dose 32.5 ml/min Estimated GFR () 40.8 Estimated GFR (Non- 35.2 BUN/Creatinine Ratio 16.0 (10-20) Calcium Level 8.2 mg/dl (8.5-10.1) Magnesium Level 2.5 mg/dl (1.8-2.4) Total Bilirubin 0.5 mg/dl (0.2-1) Direct Bilirubin 0.2 mg/dl (0-0.2) Aspartate Amino Transf (AST/SGOT) 22 U/L (15-37) Alanine Aminotransferase (ALT/SGPT) 23 U/L (12-78) Alkaline Phosphatase 153 U/L (45-117) Troponin I < 0.015 ng/ml (0-0.045) Total Protein 8.0 gm/dl (6.4-8.2) Albumin 3.3 gm/dl (3.4-5.0) Urine Color YELLOW Urine Appearance CLEAR (CLEAR) Urine pH 5.0 (4.5-7.5) Urine Specific [place] 1.021 (1.000-1.030) Urine Protein TRACE (NEG) Urine Glucose (UA) NEG (NEG) Urine Ketones NEG (NEG) Urine Occult Blood NEG (NEG) Urine Nitrite NEG (NEG) Urine Bilirubin NEG (NEG) Urine Urobilinogen NEG (NEG) Urine Leukocyte Esterase NEG (NEG) Urine WBC (Auto) 1-5 /hpf (0-5) Urine RBC (Auto) 0-4 /hpf (0-4) Urine Hyaline Casts (Auto) 10-30 /lpf (0-5) Urine Epithelial Cells (Auto) 5-10 /lpf (0-5) Urine Bacteria (Auto) NEG (NEG) Laboratory results as reviewed by me. Medications Administered Medications (Trade) Dose Ordered Sig/Celeste Route Start Time Stop Time Status Last Admin Dose Admin Sodium Chloride 500 ml @ 999 mls/hr Q31M STAT IV 06/23/17 00:16 06/23/17 00:46 DC 06/23/17 00:22 999 MLS/HR ECG Indication: syncope Rate (beats per minute): 64 Rhythm: other (paced rhythm) Findings: no acute ischemic change, no ectopy, other (poor baseline) ED Course 2314: The patient was evaluated in room B7. A complete history and physical exam was performed. 0020: I reevaluated the patient and he is stable and feels well. 0052: Reevaluated the patient, and discussed that he feels better and wants to go home. I noted that we often watch people in the hospital post-syncopal episodes, but he does not want to stay. He will call his PCP tomorrow and his son will be with him. Discussed results and discharge instructions: he verbalized understanding and agreement. The patient is ready for discharge. Medical Decision Differential: Vaso-vagal, Intracerebral Event, Neurologic, Infectious, Volume Deficiency, Hypoglycemia, Electrolyte Abnormality, Cardiac Source, Toxicologic, amongst other pathologies entertained. 89 yr old male with 3 episodes of lightheadedness/near syncope over last few days. After further discussion with him it seems that symptoms occur after sitting up quickly from laying down and he notes increased dry mouth last few days. Exam he is somewhat on dry side. Labs with mild Cr bump consistent with dehydration. He is in no distress and notes feeling better with IV fluids. Ua clear and no evidence infection. Given near-syncope in his age I did note that observing in hospital would be standard, but he wishes to go home and son is comfortable with that as well. We reviewed symptoms requiring return and that we are always here if he feels he wishes further evaluation. Stressed the importance of PCP follow up. Sympomts do not sound like ACS and as occurred > 6 hours ago I do not feel further cardiac rule out necessary. INR therapeutic without evidence of bleeding. NO evidence PE. He is not hypotensive. No evidence of stroke by exam. Head Trauma GCS Score: 15 Medication Reconcilliation Current Medication List: was personally reviewed by me Blood Pressure Screening Patient's blood pressure: Normal blood pressure Impression Primary Impression: Generalized weakness Additional Impressions: Dehydration Near syncope Scribe Attestation The scribe's documentation has been prepared under my direction and personally reviewed by me in its entirety. I confirm that the note above accurately reflects all work, treatment, procedures, and medical decision making performed by me. Departure Information Dispostion Home / Self-Care Referrals Ramin Moore M.D. (PCP) Patient Instructions My [facility] Additional Instructions Continue to eat well. Follow up with your primary care provider in the next few days for repeat evaluation. Return if passing out, worsening weakness, vomiting, fevers, or other concerns. Problem Qualifiers
[2017-06-22 23:33] LABS: BASO % 0.8 %; BASO ABS # 0.04 K/uL (0-0.2); EOS % 2.1 %; HEMATOCRIT 38.6 % (42-52); HEMOGLOBIN 12.9 g/dL (14.0-18.0); IG# 0.01 K/uL (0.00-0.02); LYMPH % 19.5 %; LYMPH ABS # 0.93 K/uL (1.2-3.4); MEAN CELL VOLUME 95.1 fL (80-100); MEAN CORPUSCULAR HEMOGLOBIN 31.8 pg (25-34); MEAN CORPUSCULAR HGB CONC 33.4 g/dl (32-36); MEAN PLATELET VOLUME 8.8 fL (7.4-10.4); MONO % 13.2 %; MONO ABS # 0.63 K/uL (0.11-0.59); NEUT % 64.2 %; NEUT ABS # 3.07 K/uL (1.4-6.5); PLATELET COUNT 152 K/uL (130-400); RED CELL DISTRIBUTION WIDTH CV 15.9 % (11.5-14.5); RED CELL DISTRIBUTION WIDTH SD 55.2 fL (36.4-46.3); WHITE BLOOD COUNT 4.78 K/uL (4.8-10.8)
[2017-06-22 23:51] LABS: INR 2.7 (0.9-1.1)
[2017-06-23 00:03] LABS: ALBUMIN 3.3 gm/dl (3.4-5.0); ALT/SGPT 23 U/L (12-78); AST/SGOT 22 U/L (15-37); BLOOD UREA NITROGEN 27 mg/dl (7-18); CALCIUM 8.2 mg/dl (8.5-10.1); CARBON DIOXIDE 25 mmol/L (21-32); CREATININE 1.69 mg/dl (0.60-1.40); GLUCOSE 124 mg/dl (70-99); POTASSIUM 3.9 mmol/L (3.5-5.1); PTT PATIENT 45.3 SECONDS (21.0-31.0); SODIUM 135 mmol/L (136-145)
[2017-06-23 00:08] LABS: ALKALINE PHOSPHATASE 153 U/L (45-117)
[2017-06-23] MEDS ORDERED: SODIUM CHLORIDE 0.9% 500ML 500 ML IV STA (00:16)
[2017-06-23 01:10] VITALS: BP 114/76; PULSE 60; O2SAT 94
--- NOTE | 2017-06-23 06:39 | DIAGNOSTIC IMAGING REPORT ---
HEAD WITHOUT CONTRAST (CT) CLINICAL HISTORY: 89 years-old Male with AMS. Acute altered mental status TECHNIQUE: Multiple axial CT images of the head were obtained without contrast. A dose lowering technique was utilized adhering to the principles of ALARA. CT DOSE: 921.40 mGy.cm COMPARISON: None. FINDINGS: Exam is mildly motion degraded. No acute intracranial hemorrhage, midline shift, intracranial mass, hydrocephalus, territorial ischemia or abnormal extra-axial collection. Mild to moderate atrophy with ex vacuo ventriculomegaly. Ill-defined areas of low-attenuation within the periventricular white matter suggests chronic microvascular ischemic changes. Cerebral vascular calcifications are noted at the level of the skull base. The calvarium is intact. The mastoid air cells, and middle ear cavities are clear. Mild mucosal thickening of the maxillary sinuses. Postsurgical changes of the globes. Soft tissues and scalp are unremarkable. IMPRESSION: No acute intracranial abnormality. The above report was generated using voice recognition software. It may contain grammatical, syntax or spelling errors. Electronically signed by: Igor Waldrop M.D. 06/23/2017 6:38 AM Dictated Date/Time: 06/23/2017 6:36 AM
--- NOTE | 2017-06-23 06:48 | DIAGNOSTIC IMAGING REPORT ---
CHEST ONE VIEW PORTABLE HISTORY: 89 years-old Male AMS acute altered mental status COMPARISON: Chest radiograph 01/10/2017 TECHNIQUE: Portable AP view of the chest FINDINGS: Cardiac silhouette is again moderately enlarged, unchanged. Single lead left pectoral pacer is unchanged. Atherosclerosis of the aorta. There is mild prominence of the pulmonary vasculature is unchanged. No pneumothorax, pleural effusion or lobar airspace consolidation to suggest pneumonia. Coarse interstitial opacities are again seen within the medial right lung base, left perihilar lung and left lung base. Additionally, there are patchy alveolar opacities of the lateral left midlung. Degenerative changes are seen within the bilateral shoulders. IMPRESSION: 1. Moderate cardiomegaly without overt pulmonary edema. 2. Patchy opacities of the lateral left midlung suspicious for atelectasis or pneumonia. 3. Chronic interstitial opacities of the lung bases suggest areas of scarring. The above report was generated using voice recognition software. It may contain grammatical, syntax or spelling errors. Electronically signed by: Igor Waldrop M.D. 06/23/2017 6:47 AM Dictated Date/Time: 06/23/2017 6:45 AM
[2018-01-25] MEDS ORDERED: POTA10TA32 PO (12:29)
[2018-01-25] MEDS ORDERED: BRIN1SUS OPB (12:29)
[2018-01-25] MEDS ORDERED: DOXY100C76 PO (14:53)
== END 2017-06-23 01:11 | disposition home or self-care (01) ==
LOC: C.EDB 22:46
DX: R55 Syncope and collapse (principal); E86.0 Dehydration; R53.1 Weakness; I48.91 Unspecified atrial fibrillation; I48.92 Unspecified atrial flutter; I10 Essential (primary) hypertension; E11.9 Type 2 diabetes mellitus without complications; E78.5 Hyperlipidemia, unspecified; I50.9 Heart failure, unspecified; K21.0 Gastro-esophageal reflux disease with esophagitis; Z86.19 Personal history of other infectious and parasitic diseases; Z87.891 Personal history of nicotine dependence; Z79.01 Long term (current) use of anticoagulants; Z79.899 Other long term (current) drug therapy; Z82.3 Family history of stroke; Z80.9 Family history of malignant neoplasm, unspecified